=== PATIENT | female | born 1995 | race Caucasian/White ===

== ENCOUNTER → 2019-06-06 09:34 | Outpatient (BNVA) | payer SELFPAY | PROVIDERS: Family Provider Family Medicine; PCP Family Medicine; Visit Provider Nurse Practitioner Family | DX: K52.9 Noninfective gastroenteritis and colitis, unspecified (principal) | CPT/HCPCS: 80053; 82272; 82784; 83516; 84443; 85025; 87205; 87506 ==

== ENCOUNTER 2019-10-03 00:11 | Emergency (ER) | payer SELFPAY ==
[2019-10-03 00:26] VITALS: BP 131/80; PULSE 110; RESP 18; TEMP 36.6; O2SAT 97; BMI 41.0
--- NOTE | 2019-10-03 00:35 | ED_ITS ---
HPI - Female Genitourinary General: Chief complaint: Vaginal Bleeding Stated complaint: vaginal bleeding Time Seen by Provider: 10/03/19 00:29 History of Present Illness: HPI Narrative: Patient complains about heavy vaginal bleeding today almost went through a whole box pads. Her periods normally on the 10th of the month which is just 3 days child. Now she normally has cramping with her periods but this is been pretty heavy she states she is anxious because the bleeding. Has had IUD removed 2 weeks ago. elicited complaint: vaginal bleeding Onset (ago): day(s) Quality of pain: cramping Consistency: constant Vaginal discharge: none Vaginal bleeding: heavy, bright red and # pads per hour (With her whole box today) Associated symptoms: Deny abdominal pain, headache(s) or nausea Sexual activity: Yes Possible : unsure if Date of Last Menstrual Period: 10/03/19 Review of Systems Const: Denies: fever(s), chills or body aches Eyes: Denies: change in vision or blurry vision ENMT: Denies: throat pain or nasal congestion Card: Denies: chest pain or dyspnea on exertion Resp: Denies: dyspnea, productive cough or non-productive cough GI: Denies: abdominal pain, nausea or vomiting : Reports: vaginal bleeding Musc: Denies: extremity pain Skin/Breast: Denies: rash Neuro: Denies: headache(s) Psych: Denies: anxiety or depression Trace/Lymph: Denies: easy bruising PFSH ED PFSH: Medical History (Updated 09/15/19 @ 15:41 by Leia Presley APN, WHNP) History of gestational diabetes History of pre-eclampsia Surgical History (Updated 09/15/19 @ 15:41 by Leia Presley APN, KIMBERLY) History of section (~2017) due to pre-eclampsia and NRFHR Family History Grandfather Diabetes Paternal grandfather Unknown Heart disease Paternal side Hypertension Paternal side Denies family history of Colon cancer Ovarian cancer Hyperlipidemia Breast cancer Family history of thyroid problem Uterine cancer Stroke Social History Smoking and tobacco status: never smoked Alcohol intake: never Lives independently: Yes Marital status: Single History of recent travel: No Additional social history: - Tobacco use: Denies Alcohol use: Soical Drug use: Denies Female Reproductive History: Date of last menstrual period: 10/03/19 Physical Exam Narrative: EXAM NARRATIVE: Patient appears anxious Const: COMMON NORMALS: no acute distress, average body habitus and patient oriented x3 HENMT: COMMON NORMALS: normocephalic HEAD & SCALP: normal to inspection and normocephalic FACE & SINUS: normal facial exam Eye: COMMON NORMALS: conjunctivae normal GENERAL EYE: appearance normal, both eyes and all related structures CONJUNCTIVA: Yes conjunctivae normal Neck/C-Spine: COMMON NORMALS: no JVD Chest: COMMONS NORMALS: normal inspection of the chest Resp: COMMON NORMALS: normal respiratory effort and clear to auscultation bilaterally AUSCULTATION: clear to auscultation bilaterally Cardio: COMMON NORMALS: no JVD and regular rhythm RATE: tachycardic RHYTHM: regular rhythm GI: COMMON NORMALS: Normal to inspection, nondistended, normoactive bowel sounds present : COMMON NORMALS: Yes normal bimanual exam EXTERNAL FEMALE EXAM: Yes normal appearance of the urethra SPECULUM EXAM - CERVIX: Yes Cervical os closed, Yes Cervical bleeding and Yes Cervical tenderness present BIMANUAL EXAM - VAGINA & UTERUS: Yes normal bimanual exam and Yes Cervical tenderness present Extremity: COMMON NORMALS: normal to inspection and full ROM Neuro: COMMON NORMALS: patient oriented x3 Course Vital Signs: Vital signs: Vital Signs Temperature 97.8 F 10/03/19 00:26 Pulse Rate 110 H 10/03/19 00:26 Respiratory Rate 18 10/03/19 00:26 Blood Pressure 131/80 10/03/19 00:26 Pulse Oximetry 97 10/03/19 00:26 Discharge Plan Discharge Prescriptions: No Action Liletta 20.1 mcg/24 hrs (6 yrs) 52 mg intrauterine device 1 device INTRAUTERI ONCE RF: 0 Coding Level of Care Code ED Director Business Intelligence for Chg Fwd Exam Comprehensive
[2019-10-03] MEDS: medroxyprogesterone 2.5 mg Tablet 10 MG PO (01:00)
[2019-10-03] MEDS: ondansetron 4 MG Tablet 8 MG PO (01:01)
[2019-10-03 01:09] LABS: Basophils % 0.2 %; Eosinophils # 0.1 10^3/uL (0.0-0.8); Eosinophils % 0.7 %; Hematocrit 41.4 % (37.0-47.0); Hemoglobin 12.9 g/dL (11.5-15.3); Lymphocytes # 4.1 10^3/uL (0.8-4.8); Lymphocytes % 31.4 %; Mean Corpuscular HGB Conc 31.2 g/dL (30.0-36.0); Mean Corpuscular Volume 83.5 fL (81-99); Mean Platelet Volume 10.8 fL (7.4-10.4); Monocytes # 0.7 10^3/uL (0.2-0.9); Monocytes % 5.1 %; Neutrophils % 62.4 %; Nucleated Red Blood Cells % 0 %; Platelet Count 392 10^3/cmm (130-400); Red Blood Count 4.96 10^6/uL (4.1-5.3); Red Cell Distribution Width 13.5 % (12.1-15.1); White Blood Count 13.1 10^3/uL (4.0-10.0)
[2019-10-03 01:42] LABS: HCG, Serum Qual Negative (Negative)
[2019-10-03 01:50] VITALS: BP 132/87; PULSE 78; RESP 14; O2SAT 98
== END 2019-10-03 01:51 | disposition home or self-care (01) ==
PROVIDERS: Emergency Provider Nurse Practitioner Family
DX: N93.9 Abnormal uterine and vaginal bleeding, unspecified (principal)
CPT/HCPCS: 12345; 36415; 84703; 85025; 99281; 99283; E0352; Q0162

== ENCOUNTER → 2019-12-27 10:35 | Outpatient (BNVA) | payer MEDICAID, SELFPAY | PROVIDERS: Visit Provider Nurse Practitioner Women's Health | DX: Z34.90 Encounter for supervision of normal pregnancy, unspecified, unspecified trimester (principal) | CPT/HCPCS: 82950; 84315 ==

== ENCOUNTER → 2020-01-09 08:18 | Outpatient (BNVA) | payer MEDICAID, SELFPAY | PROVIDERS: Visit Provider Obstetrics & Gynecology | DX: O09.291 Supervision of pregnancy with other poor reproductive or obstetric history, first trimester (principal); O09.891 Supervision of other high risk pregnancies, first trimester; Z3A.10 10 weeks gestation of pregnancy | CPT/HCPCS: 80307; 83036; 84315; 84443; 85027; 86592; 86762; 86803; 86850; 86900; 87086; 87340; 87806 ==

== ENCOUNTER → 2020-01-23 08:50 | Outpatient (BNVA) | payer MEDICAID, SELFPAY | PROVIDERS: Visit Provider Obstetrics & Gynecology | DX: O09.291 Supervision of pregnancy with other poor reproductive or obstetric history, first trimester (principal); O09.891 Supervision of other high risk pregnancies, first trimester; Z3A.00 Weeks of gestation of pregnancy not specified | CPT/HCPCS: 84315; 87491; 87591 ==

== ENCOUNTER → 2020-02-01 10:02 | Outpatient (BNVA) | payer MEDICAID, SELFPAY | PROVIDERS: Visit Provider Obstetrics & Gynecology | DX: Z34.90 Encounter for supervision of normal pregnancy, unspecified, unspecified trimester (principal) | CPT/HCPCS: 82575; 84156; 84315 ==

== ENCOUNTER → 2020-03-19 15:16 | Outpatient (BNVA) | payer MEDICAID, SELFPAY | PROVIDERS: Visit Provider Obstetrics & Gynecology | DX: Z34.82 Encounter for supervision of other normal pregnancy, second trimester (principal) | CPT/HCPCS: 76805 ==

== ENCOUNTER → 2020-05-17 14:31 | Outpatient (BNVA) | payer MEDICAID, SELFPAY | PROVIDERS: Visit Provider Obstetrics & Gynecology | DX: O09.892 Supervision of other high risk pregnancies, second trimester (principal) | CPT/HCPCS: 84315; 85027 ==

== ENCOUNTER → 2020-06-20 08:02 | Outpatient (BNVA) | payer MEDICAID, SELFPAY | PROVIDERS: Visit Provider Obstetrics & Gynecology | DX: O24.113 Pre-existing type 2 diabetes mellitus, in pregnancy, third trimester (principal); E11.9 Type 2 diabetes mellitus without complications; O09.291 Supervision of pregnancy with other poor reproductive or obstetric history, first trimester; O09.893 Supervision of other high risk pregnancies, third trimester | CPT/HCPCS: 80053; 82570; 84156; 84315; 84550; 85025 ==

== ENCOUNTER → 2020-06-25 07:55 | Outpatient (BNVA) | payer MEDICAID, SELFPAY | PROVIDERS: Visit Provider Obstetrics & Gynecology | DX: O24.113 Pre-existing type 2 diabetes mellitus, in pregnancy, third trimester; O09.291 Supervision of pregnancy with other poor reproductive or obstetric history, first trimester; Z3A.00 Weeks of gestation of pregnancy not specified | CPT/HCPCS: 80053; 83036; 84315 ==

== ENCOUNTER → 2020-07-03 07:47 | Outpatient (BNVA) | payer MEDICAID, SELFPAY | PROVIDERS: Visit Provider Obstetrics & Gynecology | DX: O24.113 Pre-existing type 2 diabetes mellitus, in pregnancy, third trimester; Z3A.00 Weeks of gestation of pregnancy not specified | CPT/HCPCS: 84315; 87081 ==

== ENCOUNTER → 2020-07-06 10:46 | Outpatient (BNVA) | payer MEDICAID, SELFPAY | PROVIDERS: Visit Provider Obstetrics & Gynecology | DX: O24.113 Pre-existing type 2 diabetes mellitus, in pregnancy, third trimester (principal); O09.893 Supervision of other high risk pregnancies, third trimester; Z98.891 History of uterine scar from previous surgery | CPT/HCPCS: 87635 ==

== ENCOUNTER 2020-07-09 16:26 | Outpatient (CLI) | payer MEDICAID, SELFPAY ==
--- NOTE | 2020-07-09 | US_ITS ---
WS: [id number] ULTRASOUND OB LIMITED TECHNIQUE: Limited ultrasound examination of the fetus. CLINICAL INFORMATION: GEST DM COMPARISON: None. FINDINGS: Cervix is long and closed. Cervix measures 4.3 cm Single interuterine gestation. presentation is vertex Placental location is fundal posterior. Placenta grade: 0. heart rate 150 BPM. Normal JEFFREY Biophysical profile 8 out of 8. breathin movement: 2 tone: 2 Amniotic fluid: 2 IMPRESSION Normal biophysical profile 8 out of 8
== END 2020-07-09 16:27 | disposition home or self-care (01) ==
LOC: RAD 16:30
PROVIDERS: Visit Provider Obstetrics & Gynecology
DX: O24.419 Gestational diabetes mellitus in pregnancy, unspecified control (principal)
CPT/HCPCS: 76819

== ENCOUNTER 2020-07-09 16:48 | Outpatient (CLI) | payer MEDICAID, SELFPAY ==
[2020-07-09 17:02] VITALS: BP 124/75; PULSE 118
[2020-07-09 17:12] VITALS: BMI 46.0
[2020-07-09 17:22] VITALS: BP 114/72; PULSE 102
[2020-07-09 17:35] VITALS: BP 114/72; PULSE 102; RESP 18
--- NOTE | 2020-07-09 17:45 | P.PCN_ITS ---
Procedure/Consent Procedure Narrative: NONSTRESS TEST: Place of test: [facility] [place]-L&D Indication: Type II diabetic on insulin-not well controlled Date and time of test: 07/09/2020, 5:20 PM Baseline: 145 Variability: Moderate variability Accelerations: Accelerations present Decelerations: No decelerations Tocometry: Irritability-no contractions INTERPRETATION: NST reactive-correlate with remainder of BPP, continue kick counts
[2020-07-09 17:48] LABS: Basophils % 0.2 %; Eosinophils # 0.2 10^3/uL (0.0-0.8); Eosinophils % 1.6 %; Hematocrit 32.3 % (37.0-47.0); Hemoglobin 9.6 g/dL (11.5-15.3); Lymphocytes # 2.3 10^3/uL (0.8-4.8); Lymphocytes % 23.1 %; Mean Corpuscular HGB Conc 29.7 g/dL (30.0-36.0); Mean Corpuscular Hemoglobin 22.1 pg (28.0-34.0); Mean Corpuscular Volume 74.4 fL (81-99); Mean Platelet Volume 11.8 fL (7.4-10.4); Monocytes # 0.7 10^3/uL (0.2-0.9); Monocytes % 6.6 %; Neutrophils # 6.77 10^3/uL (1.8-7.7); Neutrophils % 67.9 %; Nucleated Red Blood Cells % 0 %; Platelet Count 273 10^3/cmm (130-400); Red Blood Count 4.34 10^6/uL (4.1-5.3)
[2020-07-09 18:06] LABS: Alanine Aminotransferase 82 U/L (0-33); Albumin Level 3.3 g/dL (3.5-5.2); Alkaline Phosphatase 141 IU/L (35-105); Anion Gap 13.8 (5-19); Aspartate Amino Transferase 33 U/L (0-32); Blood Urea Nitrogen 9 mg/dL (6-20); Calcium 8.6 mg/dL (8.5-10.5); Carbon Dioxide 23 mmol/L (22-29); Chloride 102 mmol/L (98-107); Globulin 3.6 g/dL (1.3-4.6); Glomerular Filtration Rate 120.8 mL/min (90-130); Glucose 89 mg/dL (65-115); Osmolality Calculated 278 mOsm/kg (285-295); Potassium 3.8 mmol/L (3.5-5.1); Sodium 135 mmol/L (136-145); Total Bilirubin 0.3 mg/dL (0.15-1.2); Total Protein 6.9 g/dL (6.6-8.7)
== END 2020-07-09 17:35 | disposition home or self-care (01) ==
LOC: OPOB 16:53 → OBGYN 16:54
PROVIDERS: Visit Provider Obstetrics & Gynecology
DX: O24.113 Pre-existing type 2 diabetes mellitus, in pregnancy, third trimester (principal); Z3A.00 Weeks of gestation of pregnancy not specified
CPT/HCPCS: 59025; 80053; 85025; 96372; 99211

== ENCOUNTER 2020-07-10 08:19 | Outpatient (CLI) | payer MEDICAID, SELFPAY ==
[2020-07-10] MEDS: betamethasone susp 6 mg/mL 5 mL 12 MG IM (08:28)
== END 2020-07-10 08:30 | disposition home or self-care (01) ==
LOC: OPOB 08:19
PROVIDERS: Absent Provider Obstetrics & Gynecology; Visit Provider Obstetrics & Gynecology
DX: O26.899 Other specified pregnancy related conditions, unspecified trimester (principal); Z3A.00 Weeks of gestation of pregnancy not specified
CPT/HCPCS: 96372; J0702

== ENCOUNTER 2020-07-11 08:15 | Outpatient (CLI) | payer MEDICAID, SELFPAY ==
[2020-07-11] MEDS: betamethasone susp 6 mg/mL 5 mL 12 MG IM (08:34)
[2020-07-11 08:54] VITALS: BMI 45.8
== END 2020-07-11 08:36 | disposition home or self-care (01) ==
LOC: OPOB 08:20 → OBGYN 08:21
PROVIDERS: Visit Provider Obstetrics & Gynecology
DX: O26.899 Other specified pregnancy related conditions, unspecified trimester (principal); Z3A.00 Weeks of gestation of pregnancy not specified
CPT/HCPCS: 96372; J0702

== ENCOUNTER 2020-07-12 05:05 | Inpatient (IN) | payer MEDICAID, SELFPAY ==
--- NOTE | 2020-07-06 08:08 | ANES.PREANE2 ---
Pre-Anesthetic Assessment Pre-Anesthetic Assessment: Height/Weight: Height 1.52 m Preop Diagnosis: IUP Proposed Procedure: Operation Date: 07/12/20 07:00 Proposed Procedures p Section Repeat and bilateral total salpingectomy 27766 O34.219 95135 Z30.2(Bilateral) - Julia Starr MD Familial anesthetic complications: Epidural only worked on one side Social: Social History: No alcohol and No tobacco Exam: Pre-Anes Outpt Exam: alert, oriented x 3, clear to auscultation bilaterally and regular rate & rhythm Airway: Cervical ROM: WNL MP: 3 Dentition: Full Metabolic: Metabolic: DM (Type II) Anesthetic Plan: ASA status: 3 Anesthesia: Regional (specify below) Risk of > 500 ml blood loss (7ml/kg in children): No PFSH Anesthesia PFSH: Medical History Diabetes mellitus Diagnosed in 2020 in the beginning of her with a hemoglobin A1c of 9 No pertinent past medical history Denies chronic hypertension, diabetes, asthma, seizures, DVT/PE PMD: Counseled about need for primary care provider and list provided on 06/25/2020 Surgical History History of section 2017---PLTCS due to NRFHR. Performed at [facility] in [place], [place]. Confirmed LTCS with 2 layer closure. Family History Grandfather Diabetes Paternal grandfather Father Hypercholesteremia Hypertension Denies family history of Colon cancer Ovarian cancer Breast cancer Uterine cancer Thyroid condition Stroke Social History Smoking and tobacco status: never smoked Alcohol intake: former Former alcohol use details: socially prior to Additional social history: - Tobacco use: Denies Alcohol use: Soical Drug use: Denies Female Reproductive History: Date of last menstrual period: 10/03/19 Data Anesthesia Cardiac Studies: No Data to Display
[2020-07-12] VITALS (20 sets, daily range): BP systolic 91–128; BP diastolic 52–76; PULSE 64–87; RESP 16–18; TEMP 36.4–36.8; O2SAT 95–98; BMI 46.0
[2020-07-12 05:50] LABS: Glucose Point of Care 102 mg/dL (70-110)
[2020-07-12 05:52] LABS: Basophils % 0.1 %; Eosinophils % 0.1 %; Hemoglobin 8.5 g/dL (11.5-15.3); Lymphocytes # 2.4 10^3/uL (0.8-4.8); Lymphocytes % 18.6 %; Mean Corpuscular HGB Conc 29.3 g/dL (30.0-36.0); Mean Corpuscular Hemoglobin 22.1 pg (28.0-34.0); Mean Corpuscular Volume 75.3 fL (81-99); Mean Platelet Volume 11.8 fL (7.4-10.4); Monocytes % 7.9 %; Neutrophils # 9.34 10^3/uL (1.8-7.7); Neutrophils % 71.8 %; Nucleated Red Blood Cells % 0 %; Platelet Count 275 10^3/cmm (130-400); Red Blood Count 3.85 10^6/uL (4.1-5.3); Red Cell Distribution Width 15.1 % (12.1-15.1)
[2020-07-12] MEDS: lactated ringers 1,000 ML 999 ML IV (05:56)
[2020-07-12] MEDS: citric acid-sodium citrate 30 mL UDC PO (06:48)
[2020-07-12] MEDS: metoclopramide 5 mg/mL SDV 2 mL 10 MG IVP (06:49)
[2020-07-12] MEDS: famotidine 20 mg/2 mL INJ IVP (06:49)
--- NOTE | 2020-07-12 06:55 | P.HPUD_ITS ---
Labor & Delivery H&P Update Date of Procedure: July 12, 2020 Date H&P Performed: 07/03/20 H&P update information: I have reviewed H&P completed within last 30 days, I have examined patient prior to procedure, No changes to prior documentation and H&P is in [facility] EMR on date indicated Admission Diagnosis: , Multiparity desiring permanent sterilization Preop diagnosis: IUP Planned procedure: Operation Date: 07/12/20 07:00 Proposed Procedures p Section Repeat and bilateral total salpingectomy 24350 O34.219 91348 Z30.2(Bilateral) - Julia Starr MD
--- NOTE | 2020-07-12 06:58 | ANES.PREANE2 ---
Pre-Anesthetic Assessment Pre-Anesthetic Assessment: Height/Weight: Height 1.52 m Weight 107.955 kg Pulse BP 87 118/69 07/12/20 05:39 07/12/20 05:39 Preop Diagnosis: IUP Proposed Procedure: Operation Date: 07/12/20 07:00 Proposed Procedures p Section Repeat and bilateral total salpingectomy 61679 O34.219 39486 Z30.2(Bilateral) - Julia Starr MD Familial anesthetic complications: no hx anesthesia complications Was Beta Jhonny taken within 24 hours: N/A Was Clonidine taken within 24 hours: N/A Last intake: Intake Last Liquid Date 07/11/20 Last Liquid Time 22:00 Last Solid Date 07/11/20 Last Solid Time 21:30 Last Intake: 22:00 Social: Social History: No alcohol and No tobacco Exam: Pre-Anes Outpt Exam: alert, oriented x 3, clear to auscultation bilaterally and regular rate & rhythm Airway: Submandibular: WNL Cervical ROM: WNL MP: 3 History/ROS: No significant history except as noted Metabolic: Metabolic: DM and Morbid obesity Anesthetic Plan: ASA status: 2 Anesthesia: Anesthesia Evaluation and Regional (specify below) Other: spinal Risk of > 500 ml blood loss (7ml/kg in children): Yes, adequate IV access and fluids planned PFSH Anesthesia PFSH: Medical History Diabetes mellitus Diagnosed in 2019 in the beginning of her with a hemoglobin A1c of 9 No pertinent past medical history Denies chronic hypertension, diabetes, asthma, seizures, DVT/PE PMD: Counseled about need for primary care provider and list provided on 06/25/2020 Surgical History History of section 2017---PLTCS due to NRFHR. Performed at [facility] in [place], [place]. Confirmed LTCS with 2 layer closure. Family History Grandfather Diabetes Paternal grandfather Father Hypercholesteremia Hypertension Denies family history of Colon cancer Ovarian cancer Breast cancer Uterine cancer Thyroid condition Stroke Social History Smoking and tobacco status: never smoked Alcohol intake: former Former alcohol use details: socially prior to Additional social history: - Female Reproductive History: : 3 Data Anesthesia CBC & Chem 7: 07/12/20 05:40 Other Labs: Laboratory Results - last 48 hr 07/12/20 07/12/20 05:36 05:40 WBC 13.0 H RBC 3.85 L Hgb 8.5 L Hct 29.0 L MCV 75.3 L MCH 22.1 L MCHC 29.3 L RDW 15.1 Plt Count 275 MPV 11.8 H Neut % (Auto) 71.8 Lymph % (Auto) 18.6 Boundary % (Auto) 7.9 Eos % (Auto) 0.1 Baso % (Auto) 0.1 Neut # (Auto) 9.34 H Lymph # (Auto) 2.4 Boundary # (Auto) 1.0 H Eos # (Auto) 0.0 Baso # (Auto) 0.0 Nucleated RBC % (auto) 0 Nucleated RBCs # 0.0 POC Glucose 102 Cardiac Studies: No Data to Display
--- NOTE | 2020-07-12 08:59 | PM.OP ---
Operative Report Date of procedure: July 12, 2020 OPERATIVE REPORT Date of surgery: 07/12/2020 Date of dictation: 07/12/2020 Preoperative diagnosis: 25-year-old 3 P0201 at 37 weeks and 0 days, Previous delivery x1-desiring repeat , multiparity desiring sterilization, anemia with a hemoglobin of 8.5, type 2 diabetes on insulin-not well controlled, morbid obesity with a BMI of 46, polyhydramnios, large for gestational age, history of preeclampsia on aspirin Postoperative diagnosis/findings: Same, baby boy Vancourt weighing 9 pounds 12 ounces, 4410 g, 20-1/2 inches long with Apgars 8 8 and 9, cephalic, clear amniotic fluid, normal tubes and ovaries bilaterally, omental adhesions onto the anterior abdominal wall which were taken down. Procedure done: Repeat low transverse delivery with bilateral total salpingectomy for sterilization Specimens removed/disposition of specimens: Placenta and cord which were discarded right and left fallopian tubes sent to pathology completely Surgeon: Dr. Julia Conley speech correction assistant: Shonda Campuzano Anesthesia: Spinal anesthesia Estimated blood loss: 900 ml Intravenous fluids: 1500 mL of LR Urine output: 500 mL of clear urine at the end of procedure Medications: As per anesthesia records Complications: None, patient was left to recover in a stable condition. PROCEDURE: After consent was obtained, patient was taken to the operating room where spinal anesthesia was placed without difficulty. She was placed supine on the table with a left lateral wedge. Weber catheter and SCDs were placed. The abdomen was shaved and then prepped with duo prep. She was draped in a sterile fashion. After checking adequacy of anesthesia, a Pfannenstiel incision was made 2 cm above the pubic symphysis. This was a little bit below her previous incision which was higher up. The incision was carried down to the fascia using the Bovie. The fascia was nicked in the midline and the fascial incision was extended laterally using curved Mayos. The inferior aspect of the fascia was grasped with renu clamps and dissected off from the underlying rectus muscle. This was repeated again superiorly without any difficulty. The rectus muscle was . A eliu was made in the peritoneum and the peritoneal incision was carried inferiorly taking care to proceed in layers so as to avoid the bladder. The peritoneal incision was extended superiorly as well. Omental adhesions were noted onto the peritoneum and these were taken down using the Bovie and taking care to ensure good hemostasis. Once this was done the omentum was stuck to behind the uterus. The uterus was noted to be rotated to the left. The bladder peritoneum was grasped with smooth forceps a bladder flap was created-minimal adhesions were noted on the bladder. the bladder blade was replaced thus protecting the bladder. A LOW TRANSVERSE UTERINE INCISION was made with a scalpel till the amniotic membrane was reached. The uterine incision was then extended laterally using bandage scissors. Amniotomy was done with Allis clamps and clear amniotic fluid was drained. The head of the baby was brought up to the level of the incision and delivered with fundal pressure. The remainder of body followed without any difficulty. The nose and mouth were suctioned, the umbilical cord was clamped and cut and the baby was handed off to the waiting field pipe lines supervisor, Dr. Santiago. The placenta was delivered spontaneously with fundal massage. It was noted to be intact and was discarded. The interior of the uterus was cleaned of all clot and debris and was noted to be josue well. The uterus was exteriorized. The uterine incision was closed with 0 Vicryl in a running interlocking manner. Good hemostasis and reapproximation was obtained. Jsgugs-vo-rebhm sutures were placed to obtain hemostasis. The abdomen was irrigated and the gutters were cleaned of clot and debris. Normal tubes and ovaries were noted bilaterally. At this time we proceeded with bilateral salpingectomy. Using the Vuoyant device the mesosalpinx under the fallopian tube was grasped clamped cauterized and cut. This was done sequentially starting from the fimbriated end towards the cornual end. Good hemostasis and sealing was noted. The cornual end was cauterized again. This was done first on the right side and then on the left side and both fallopian tubes were completely excised. There was some bleeding noted near the left cornual edge and caomvz-nv-sfgty suture was placed here and bleeding was well controlled. The uterus was placed back into the abdomen and uterine incision was noted to be hemostatic. The peritoneum was closed with a 2-0 plain in a continuous stitch. The rectus muscle was reapproximated with 2-0 plain suture in a mattress stitch. Good hemostasis was noted in the rectus muscle layer. The fascia was inspected for any defects and none were found and the fascia was closed with 0 loop PDS in continuous stitch. The subcutaneous plane was then irrigated and hemostasis was obtained using the Bovie. The subcutaneous plane was then reapproximated using 2-0 plain suture in a continuous manner. The skin was then closed with 4-0 Monocryl in a subcuticular fashion. Good reapproximation and hemostasis was noted. Steri-Strips were applied. The incision was dressed with Telfa ,ABD and paper tape. The fundus was noted to be firm at the end of the procedure and excess blood was expressed from the vagina. The patient was left to recover in a stable condition. This documentation was created by [employer] control tower radio operator software (known for inherent control tower radio operator error). Every effort was made to assure accuracy of control tower radio operator. Any obvious errors or omissions should be clarified with the author of the document. Pre-op Diagnosis: IUP History History History 3 Term 0 Miscarriages/Ectopic 0 2 Living Children 1 Other History: 3, Para 0201 NSVDx 1 (at 22 weeks-demise) CD x 1, 1 ---> 03/2015. Male(Issa) , 22 weeks. Vaginal. Polydramnios with PTL with PTD---- delivered in [place], [place]. 2 ---> 08/21/2016. Female (Bev) , 3 lb 12.7 oz, (1720 g), 34-2/7 WG. General anesthesia. Emergency PLTCS due to NRFHT. Performed at [facility] in [place], [place]. Complicated by Pre-Eclampsia, GDM-diet controlled per patient 3---> 07/12/2020--male, (Patrick) weighing 9 pounds 12 ounces, 4418 g at 37 weeks. Type II diabetic diagnosed at the beginning of the and not well controlled with insulin. Repeat low transverse delivery with total salpingectomy for sterilization by Dr. Conley at [facility]. [facility] CUT TO LENGTH OPERATOR Medical History Diabetes mellitus Diagnosed in 2019 in the beginning of her with a hemoglobin A1c of 9 No pertinent past medical history Denies chronic hypertension, diabetes, asthma, seizures, DVT/PE PMD: Counseled about need for primary care provider and list provided on 06/25/2020 Surgical History (Updated 07/12/20 @ 12:10 by Julia Starr MD) History of section X 2 1--2017---PLTCS due to NRFHR. Performed at [facility] in [place], [place]. Confirmed LTCS with 2 layer closure. 2----> repeat low transverse delivery on 07/12/[address] Conley at [facility], scheduled, tubal ligation done at the same time. Status post tubal ligation 07/12/2020--bilateral total salpingectomy performed at time of for sterilization by Dr. Conley at [facility]. -Pathology pending Family History Grandfather Diabetes Paternal grandfather Father Hypercholesteremia Hypertension Denies family history of Colon cancer Ovarian cancer Breast cancer Uterine cancer Thyroid condition Stroke Social History Smoking and tobacco status: never smoked Alcohol intake: former Former alcohol use details: socially prior to Additional social history: - Supplemental [facility] Information - Tobacco Use: Denies current or past use Drug Use: Denies current or past use Alcohol Use: Social alcohol use prior to the none since finding out she was Work/Study Status: Uqks-id-gywk mother Other Female Reproductive History Menstrual History Comment: Menarche at age 11 with a cycle length of 32 days and a bleeding duration of 8-10 days. Sexual History Sexual History Comment: Coitarche at age 17, less than 5 lifetime partners, has been with her current partner, her Nii since 2018. He works in sales. STD History Comment: Denies history of sexually transmitted diseases Contraception Contraception History Comment: Has used condoms and the Liletta IUD in the past. Liletta IUD placed on 10/23/2016; removed on 09/15/2019--she like this and did well with this. -Total salpingectomy performed on 07/12/2020 at time of repeat for sterilization.
[2020-07-12] MEDS: dextrose 5%-lactated ringers 1,000 ML 125 ML IV (11:40)
[2020-07-12 13:29] LABS: Glucose Point of Care 121 mg/dL (70-110)
[2020-07-12] MEDS: ibuprofen 800 mg tablet PO ×2 (14:33→20:19)
--- NOTE | 2020-07-12 15:25 | PC.NURSE ---
Assisted pt with sitting on side of bed to dangle feet. Pt reported having a lot of pain, and was lightheaded and nauseated. Pt was tearful with movement. Decided to assist pt back to resting in bed instead of getting up to chair. Gave pt KPAD and pain medication.
--- NOTE | 2020-07-12 15:42 | PC.NURSE ---
Addendum entered by Landon Cyr RN 07/12/20 15:59: Witness to waste of dilaudid. 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 Witnessed by second RN Landon Cyr RN.
[2020-07-12] MEDS: docusate sodium 100 mg Capsule PO (17:41)
[2020-07-12] MEDS: ferrous sulfate EC 325 mg Tablet PO (17:41)
[2020-07-12 19:31] LABS: Hematocrit 28.3 % (37.0-47.0); Hemoglobin 8.4 g/dL (11.5-15.3); Mean Corpuscular HGB Conc 29.7 g/dL (30.0-36.0); Mean Corpuscular Hemoglobin 22.1 pg (28.0-34.0); Mean Corpuscular Volume 74.5 fL (81-99); Mean Platelet Volume 11.5 fL (7.4-10.4); Platelet Count 286 10^3/cmm (130-400); Red Cell Distribution Width 15.1 % (12.1-15.1); White Blood Count 14.9 10^3/uL (4.0-10.0)
[2020-07-12 19:58] LABS: Albumin Level 2.7 g/dL (3.5-5.2); Alkaline Phosphatase 104 IU/L (35-105); Anion Gap 13.2 (5-19); Aspartate Amino Transferase 31 U/L (0-32); Blood Urea Nitrogen 7 mg/dL (6-20); Calcium 7.5 mg/dL (8.5-10.5); Carbon Dioxide 23 mmol/L (22-29); Chloride 104 mmol/L (98-107); Globulin 2.6 g/dL (1.3-4.6); Glomerular Filtration Rate 149.1 mL/min (90-130); Glucose 103 mg/dL (65-115); Osmolality Calculated 280 mOsm/kg (285-295); Potassium 4.2 mmol/L (3.5-5.1); Sodium 136 mmol/L (136-145); Total Bilirubin 0.3 mg/dL (0.15-1.2); Total Protein 5.3 g/dL (6.6-8.7)
[2020-07-12 20:09] LABS: Alanine Aminotransferase 61 U/L (0-33)
[2020-07-12] MEDS: heparin 5,000 unit/mL INJ 1 mL 5000 UNIT SUBCUT (21:28)
[2020-07-13] VITALS (7 sets, daily range): BP systolic 98–129; BP diastolic 53–63; PULSE 70–78; RESP 16–18; TEMP 36.4–36.9; O2SAT 94–100
[2020-07-13] MEDS: heparin 5,000 unit/mL INJ 1 mL 5000 UNIT SUBCUT ×3 (05:35→22:26)
--- NOTE | 2020-07-13 06:56 | PC.NURSE ---
Surgical dressing removed by this nurse per MD order. Surgical site clean, dry and intact. Patient tolerated well. MARIIA RN
[2020-07-13] MEDS: lanolin oint 7 gm 1 APPLIC TOPICAL (07:06)
--- NOTE | 2020-07-13 07:15 | PM.PN ---
Subjective Subjective: Interval history: SUBJECTIVE: Ms. Márquez is doing okay today. She denies shortness of breath, chest pain, nausea, vomiting. Denies lightheadedness except when she has been on for a long time. Denies palpitation. She states that pain is now well controlled if she takes her pain medication however she really does not like taking pain medication. She is breast-feeding without any difficulty and bonding well with her son. She denies fever, chills, heavy vaginal bleeding OBJECTIVE/PHYSICAL EXAM: Gen.: No acute distress Heart: S1-S2 heard, regular rate and rhythm Lungs: Clear to auscultation bilaterally Abdomen: Soft, fundus firm below umbilicus, tenderness around incision. Hypoactive bowel sounds Incision: Clean dry and intact with Steri-Strips. Incision is overall moist as it is under her pannus Legs: No calf tenderness, trace bilateral pitting pedal edema. ASSESSMENT AND PLAN: 25-year-old 3 para 1-2-0-1 status post repeat delivery and tubal ligation, postoperative day #1 -Type II diabetic-so far post meals are overall okay however she is only on clears--we will not be able to assess diabetic control at this time-we have not had to use the regular insulin sliding scale thus far as she has had only minor elevations in her sugar. We will need to reassess this once she is on a regular diet -Morbid obesity-SCDs on while in bed and she is getting heparin 5000 units every 8 hours-continue this for DVT prophylaxis -Incision is moist--we will try to keep this area clean-nurse notified to place pad this area and patient instructed to change it every 2 hours -Chronic anemia-discussed with patient that my concern is her hemoglobin has dropped further and I would like to repeat a CBC today. If her hemoglobin is in the sevens I would recommend transfusion of 2 units of PRBCs as this may help her feel better and eating healing and decrease some of the dizziness that she is experiencing. She is agreeable with this plan--repeat CBC sent today and if hemoglobin is in the sevens we will plan on transfusing patient with 2 units of PRBC -She will likely need to stay for 1 or 2 more nights to recover from surgery -Patient has not yet passed flatus-we will advance to full liquid and hold at this point until she passes gas at which point we will advance to regular diet -P.o. pain medication as needed -Encourage ambulation and incentive spirometer use Vitals/I&O/Wt Last Vital Signs Temp 98.4 F 07/13/20 03:30 Pulse 78 07/13/20 03:30 Resp 16 07/13/20 03:30 BP 98/53 07/13/20 03:30 Pulse Ox 94 07/13/20 03:30 07/12/20 07/13/20 07/13/20 22:59 06:59 14:59 Output Total 1040 / 3465 945 / 4410 Balance -1040 / -765 -945 / -1710 Weight last 48 hrs Weight 238 lb Weight 236 lb Physical Exam Urinary Catheter Management^: Weber: Cath Placed During This Visit: yes Reason for Continuing Indwelling Catheter: Required Immobilization for Trauma or Surgery or Anesthesia Urinary Catheter Date of Insertion: 07/12/20 Urinary Catheter Time of Insertion: 07:20 Data : 07/12/20 19:20 07/12/20 19:20 Attestations Medical Necessity Statement*: Patient will need to stay 2 more midnights to recover from surgery Coding Level of Care Code Acute Pain Management Nurse for Harpreet Johnston
[2020-07-13] MEDS: ibuprofen 800 mg tablet PO ×4 (08:44→22:26)
[2020-07-13] MEDS: prenatal vitamin Capsule 1 CAP PO (08:44)
[2020-07-13] MEDS: ferrous sulfate EC 325 mg Tablet PO (08:44)
[2020-07-13] MEDS: docusate sodium 100 mg Capsule PO (08:45)
[2020-07-13] MEDS: alum-mag-hydroxide-sime 30 mL UDC PO (10:09)
[2020-07-13 10:15] LABS: Glucose Point of Care 107 mg/dL (70-110)
--- NOTE | 2020-07-13 13:15 | PC.NURSE ---
Pt ambulated around unit x3 and then became dizzy and lightheaded and was wheeled in chair back to room. Pt went back to bed without difficulties.
[2020-07-13 13:53] LABS: Glucose Point of Care 113 mg/dL (70-110)
--- NOTE | 2020-07-13 15:00 | PC.NURSE ---
Pt ambulated in hallway around OB unit x2 without difficulty. Pt back to room and to bathroom.
[2020-07-13] MEDS: diphenhydrAMINE 25 mg Capsule 50 MG PO (15:13)
[2020-07-13 17:55] LABS: Basophils % 0.3 %; Eosinophils # 0.4 10^3/uL (0.0-0.8); Hemoglobin 8.3 g/dL (11.5-15.3); Lymphocytes # 2.9 10^3/uL (0.8-4.8); Lymphocytes % 22.2 %; Mean Corpuscular HGB Conc 29.6 g/dL (30.0-36.0); Mean Corpuscular Hemoglobin 22.2 pg (28.0-34.0); Mean Corpuscular Volume 74.9 fL (81-99); Mean Platelet Volume 11.6 fL (7.4-10.4); Monocytes % 7.5 %; Neutrophils # 8.64 10^3/uL (1.8-7.7); Neutrophils % 66.3 %; Nucleated Red Blood Cells % 0.2 %; Platelet Count 259 10^3/cmm (130-400); Red Blood Count 3.74 10^6/uL (4.1-5.3); Red Cell Distribution Width 15.3 % (12.1-15.1)
[2020-07-13 19:45] LABS: Glucose Point of Care 118 mg/dL (70-110)
[2020-07-13] MEDS: diphenhydrAMINE 50 mg/mL SDV 1mL 25 MG IVP (21:03)
--- NOTE | 2020-07-14 00:08 | PC.NURSE ---
bilateral feet have 2+ pitting edema. redness is noted and circled on feet, pulses are palpable. pt states her feet are itchy and she was given IV benadryl. however, rash and redness remains on lower extremities. Redness and generalized raised rash noted to abdomen and upper thighs/perineum. It appears to be reaction to coming in contact with something. will continue to monitor. Physician is aware.
[2020-07-14 00:19] VITALS: RESP 18; O2SAT 99
[2020-07-14 05:20] VITALS: BP 123/70; PULSE 75; RESP 18; TEMP 36.9; O2SAT 99
[2020-07-14] MEDS: heparin 5,000 unit/mL INJ 1 mL 5000 UNIT SUBCUT (06:19)
[2020-07-14 06:36] LABS: Glucose Point of Care 84 mg/dL (70-110)
[2020-07-14] MEDS: prenatal vitamin Capsule 1 CAP PO (08:40)
[2020-07-14 08:41] VITALS: RESP 17
[2020-07-14] MEDS: ferrous sulfate EC 325 mg Tablet PO (08:41)
[2020-07-14] MEDS: ibuprofen 800 mg tablet PO ×2 (08:41→14:20)
[2020-07-14] MEDS: docusate sodium 100 mg Capsule PO (08:41)
[2020-07-14 08:45] VITALS: BP 123/72; PULSE 96; RESP 17; TEMP 36.7; O2SAT 96
[2020-07-14 09:44] LABS: Glucose Point of Care 120 mg/dL (70-110)
[2020-07-14] MEDS: ketorolac 30 mg/mL INJ IM (11:19)
--- NOTE | 2020-07-14 12:21 | PM.OBGYDC ---
Discharge Providers PETS SALESPERSON Date of Admission: 07/12/20 05:05 Date of Discharge: 07/14/20 Attending Provider at Admission: Julia Starr MD Attending Provider at Discharge: Julia Starr MD Diagnoses at Discharge Discharge Diagnosis (1) Anemia affecting in third trimester: Status: Acute (2) Request for sterilization: Status: Acute (3) Large for gestational age fetus affecting management of mother: Status: Acute Qualifiers: Fetus number: single or unspecified fetus Trimester: third trimester Qualified Code(s): O36.63X0 - Maternal care for excessive growth, third trimester, not applicable or unspecified (4) Polyhydramnios: Status: Acute Qualifiers: Fetus number: single or unspecified fetus Trimester: third trimester Qualified Code(s): O40.3XX0 - Polyhydramnios, third trimester, not applicable or unspecified (5) Obesity affecting : Status: Acute (6) Diabetes in : Status: Acute Qualifiers: Diabetes in type: pre-existing, type 2 Trimester: third trimester Qualified Code(s): O24.113 - Pre-existing type 2 diabetes mellitus, in , third trimester Reason for Visit Reason for Visit: repeat section and bi total salpingectomy Hospital Course Hospital Course 25-year-old 3 para 1-2-0-1 status post repeat delivery and tubal ligation, postoperative day #2. Admitted for a reapeat delivery at 37 weeks and 0 days. care complicated by diabetes, obesity, polyhydramnios and anemia. She is a febrile and Hemodynamically stable. Postop observation on uneventful. Tolerating diet well. Passing flatus. She is breast feeding without difficulty. Information Peripartum Data: Delivery Method: Physical Exam Narrative: EXAM NARRATIVE: GA; alert and oriented x 3 HEENT: normal Breasts: engorged Nipples - skin intact Lungs; clear to auscultation Heart: regular rhythm, no murmurs. Abd: Appropriately tender. BS+. minimal tenderness, incisio, Uterine fundus below umbilicus. No Fundal Tenderness. Perineum: normal lochia. Extremities: feet edema, no cyanosis, no tenderness. Urinary Catheter Management^: Weber: Cath Placed During This Visit: yes, but has since been removed by the nurse Reason for Continuing Indwelling Catheter: Decision to DC Catheter Urinary Catheter Date of Insertion: 07/12/20 Urinary Catheter Time of Insertion: 07:20 Date Urinary Catheter Removed: 07/13/20 Time Urinary Catheter Discontinued: 07:00 Discharge Data Data Completed and Pending: Completed Studies During Hospitalization Category Date Time Status Pathology: Surgic al [PTH] Routine Pth 07/12/20 09:10 Completed Pending at discharge Category Date Time Status PRBC [Leukocyte R educed RBC] Stat Lab 07/12/20 05:20 Results Type and Screen S tat Lab 07/12/20 05:20 Results Labs from last 24 hours 07/14/20 07/14/20 07/13/20 09:41 06:34 19:40 WBC RBC Hgb Hct MCV MCH MCHC RDW Plt Count MPV Neut % (Auto) Lymph % (Auto) [place] % (Auto) Eos % (Auto) Baso % (Auto) Neut # (Auto) Lymph # (Auto) [place] # (Auto) Eos # (Auto) Baso # (Auto) Nucleated RBC % (a uto) Nucleated RBCs # POC Glucose 120 H 84 118 H 07/13/20 07/13/20 17:32 13:48 WBC 13.0 H RBC 3.74 L Hgb 8.3 L Hct 28.0 L MCV 74.9 L MCH 22.2 L MCHC 29.6 L RDW 15.3 H Plt Count 259 MPV 11.6 H Neut % (Auto) 66.3 Lymph % (Auto) 22.2 [place] % (Auto) 7.5 Eos % (Auto) 3.0 Baso % (Auto) 0.3 Neut # (Auto) 8.64 H Lymph # (Auto) 2.9 [place] # (Auto) 1.0 H Eos # (Auto) 0.4 Baso # (Auto) 0.0 Nucleated RBC % (a uto) 0.2 Nucleated RBCs # 0.0 POC Glucose 113 H Vitals: Last Vital Signs Temp 98.0 F 07/14/20 08:45 Pulse 96 07/14/20 08:45 Resp 17 07/14/20 08:45 BP 123/72 07/14/20 08:45 Pulse Ox 96 07/14/20 08:45 Discharge Plan Discharge Patient Disposition: Home Condition: Stable Prescriptions: New ibuprofen 800 mg tablet 800 mg PO TID PRN (Reason: pain) Qty: 60 RF: 0 hydrocodone-acetaminophen 5-325 mg tablet 1 tab PO Q4H PRN (Reason: pain) Qty: 30 RF: 0 Iron (ferrous sulfate) 325 mg (65 mg iron) tablet 325 mg PO BID Qty: 60 RF: 0 Colace 100 mg capsule 100 mg PO BID Qty: 60 RF: 0 acetaminophen 325 mg capsule 325 mg PO Q4H PRN (Reason: fever or pain) Qty: 60 RF: 0 Continued (DME) insulin syringe,safetyneedle 0.3 mL 30 x 5/16 syringe See Rx Instructions .ROUTE .MEDSUPPLY Qty: 200 RF: 6 (DME) Blood Glucose Test Strip See Rx Instructions .ROUTE .MEDSUPPLY Qty: 200 RF: 6 insulin aspart U-100 [Novolog U-100 Insulin aspart] 100 unit/mL solution See Rx Instructions SUBCUT TID RF: 0 prenat.vits,edgar,rys-bicn-senje Tablet 1 tab PO DAILY RF: 0 (DME) breast pump [Pump In Style Advanced] Device See Rx Instructions .ROUTE .MEDSUPPLY Qty: 1 RF: 0 Levemir U-100 Insulin 100 unit/mL solution 60 unit SUBCUT DAILY Qty: 10 RF: 0 (DME) blood-glucose meter [Blood Glucose Monitoring] Kit See Rx Instructions .ROUTE .MEDSUPPLY Qty: 1 RF: 0 insulin NPH isoph U-100 human 100 unit/mL suspension See Rx Instructions SUBCUT .COMPLEX Qty: 10 RF: 5 ferrous sulfate 325 mg (65 mg iron) tablet 325 mg PO DAILY Qty: 60 RF: 2 Discharge Orders: Discharge Order (Routine); Ordered 07/14/20 Ordered By: Oskar Wilson Referrals: Julia Starr MD [Physician] - 07/25/20 8:15 am (Your 2 week appointment has been scheduled for 07/25/2020 at 8:15 am. Your 6 week appointment has been scheduled for 09/03/2020 at 2:45 pm.) Discharge Diet: Usual diet Discharge Activity: Increase activity as tolerated Patient Instructions: Your Baby (GEN), and the Working Mom (GEN), Expression, Collection and Storage of Breastmilk (GEN), How to Hold and Breastfeed Your Baby (GEN), and Nipple Soreness (GEN), Breast Fullness Versus Breast Engorgement (GEN), How to Tell if Your Baby is Getting Enough Breast Milk (GEN), Breast Care for the Breast Feeding Mother (GEN), Pre-eclampsia and Eclampsia (DC), Pre-eclampsia and Eclampsia (GEN), OB [facility], OB Discharge Report, OB Food/Drug Interaction Guide, Opioid Safety, Abnormal Bleeding, Depression Activity Restrictions/Additional Instructions: 1. Please call [facility] clinic on next working day to make your post-operative appointment in 2 weeks. 2. Please stay home until you come back to the clinic on first post-operative check up. 3. Please follow instructions on your medications CAREFULLY. 4. If you have abdominal incision, do not cover it unless dressing is necessary because of drainage. OK to shower, but avoid bath. Leave steri-strips until they fall off. If they are still on one week after surgery, you may remove them. 5. If you had vaginal surgery or vaginal repair, Dr. Conley may instruct you to take SITZ bath. 6. Yellow, blood tinged odorous vaginal discharge is usually normal after hysterectomy or vaginal surgeries. 7. No sexual intercourse, tampons, or douches until you are completely released from the post-operative care. 8. Avoid constipation by eating right and maybe using some Metamucil or Milk of Magnesia. 9. All prescription refills are given during the working hours. Please do no wait till it runs out. Call the clinic at [phone] before your medication runs out. The clinic will get in touch with your doctor to prescribe medications if necessary. 10. Please remain within 40 mile radius from our hospital because emergencies do happen now and then during the post-operative period. 11. If you have stairs at home, take one step at a time slowly and minimize the number of trips. It helps to stay in one floor for the next few days. No lifting except what you can lift by one hand until you are released from the post-operative care. 12. Driving is discouraged until you are well healed. It may be 3-4 weeks before you feel strong enough to drive. You should be able to turn and look through the rear window without pain and you should be able to push the brake pedal very hard without pain before you drive. No fast rules, but SAFETY should be your primary concern. DO NOT drive if you are on sedating medications such as narcotics. 13. Call the clinic (during working hours) to make urgent appointment or go to the Emergency room, if any of the following occurs: i. Vaginal bleeding becomes heavy, more than a period. ii. Incision becomes red and sore, or drains pus. iii. Your temperature is over 100.4 or you have chill. iv. IV site becomes red and swollen (a little ``knot?? is usually OK) v. Persistent nausea and vomiting vi. Persistent constipation or diarrhea vii. Rash or allergic reaction to medications. Discharge Attestations PETS SALESPERSON Time Spent in Discharge Care*: greater than 30 min Coding Level of Care Code Acute Toolroom Machinist for [facility] Fwd Diagnoses Anemia affecting in third trimester O99.013 Request for sterilization Z30.2 Large for gestational age fetus affecting management of mother O36.63X0 Fetus number: single or unspecified fetus Trimester: third trimester Polyhydramnios O40.3XX0 Fetus number: single or unspecified fetus Trimester: third trimester Obesity affecting O99.210 Diabetes in O24.113 Diabetes in type: pre-existing, type 2 Trimester: third trimester
[2020-07-14 14:20] VITALS: RESP 16
[2020-07-14 18:00] VITALS: BP 121/77; PULSE 105; RESP 16; TEMP 36.6; O2SAT 98
== END 2020-07-14 18:10 | disposition home or self-care (01) | DRG 783 ==
PROVIDERS: Admitting Provider Obstetrics & Gynecology; Visit Provider Obstetrics & Gynecology
PROC: 10D00Z1 Extraction of Products of Conception, Low, Open Approach (ICD-10-PCS; CPT 59514; principal; 2020-07-12 07:00)
DX: O34.211 Maternal care for low transverse scar from previous cesarean delivery (principal); O24.12 Pre-existing type 2 diabetes mellitus, in childbirth; Z3A.37 37 weeks gestation of pregnancy; Z37.0 Single live birth; O99.02 Anemia complicating childbirth; D64.9 Anemia, unspecified; O36.63X0 Maternal care for excessive fetal growth, third trimester, not applicable or unspecified; O40.3XX0 Polyhydramnios, third trimester, not applicable or unspecified; O99.214 Obesity complicating childbirth; E66.01 Morbid (severe) obesity due to excess calories; E11.9 Type 2 diabetes mellitus without complications; Z79.4 Long term (current) use of insulin; Z30.2 Encounter for sterilization
CPT/HCPCS: 36415; 36416; 51702; 58611; 59025; 59409; 80053; 82962; 85025; 85027; 86850; 86900; 86920; 88302; 96372; 96374; 96375; 98960; J1200; J1644; J1885; J2274; J2405; J2765; J3490; J7030

== ENCOUNTER → 2020-09-05 08:20 | Outpatient (BNVA) | payer MEDICAID, SELFPAY | PROVIDERS: Visit Provider Obstetrics & Gynecology | DX: Z12.4 Encounter for screening for malignant neoplasm of cervix (principal); O99.013 Anemia complicating pregnancy, third trimester; O24.111 Pre-existing type 2 diabetes mellitus, in pregnancy, first trimester; E11.9 Type 2 diabetes mellitus without complications; O24.113 Pre-existing type 2 diabetes mellitus, in pregnancy, third trimester; Z3A.00 Weeks of gestation of pregnancy not specified; D64.9 Anemia, unspecified | CPT/HCPCS: 83036; 85007; 85027; 88175 ==

== ENCOUNTER 2022-08-09 13:07 | Emergency (ER) | payer MEDICAID, SELFPAY ==
[2022-08-09 13:08] VITALS: BP 140/75; PULSE 125; RESP 17; O2SAT 96; BMI 34.7
[2022-08-09] MEDS: ketorolac 60 mg/2 mL INJ IM (14:12)
[2022-08-09 14:42] VITALS: BP 130/71; PULSE 101; RESP 15; O2SAT 98
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
--- NOTE | 2022-08-28 14:59 | DCPLANNER ---
late entry - patient called due to no primary care physician - no answer at this time.
== END 2022-08-09 14:43 | disposition home or self-care (01) ==
PROVIDERS: Emergency Provider Family Medicine
DX: M79.10 Myalgia, unspecified site (principal); E11.9 Type 2 diabetes mellitus without complications; V89.2XXA Person injured in unspecified motor-vehicle accident, traffic, initial encounter
CPT/HCPCS: 96372; 99284; J1885

== ENCOUNTER 2022-12-11 06:55 | Emergency (ER) | payer MEDICAID, SELFPAY ==
--- NOTE | 2022-12-11 06:56 | W.ED.DENTAL ---
HPI - Dental/Oral General: Chief complaint: Dental/Oral Stated complaint: Dental pain Time Seen by Provider: 12/11/22 06:56 Source: patient Mode of arrival: ambulatory History of Present Illness: 27-year-old female complaining of dental pain . She isolates pain to the the lower left wisdom tooth. No fever sweats chills no difficulty speaking or swallowing. MD Complaint: tooth pain Teeth map: 1. Relieving factors: nothing Exacerbating factors: nothing Context: history of dental caries Associated symptoms: Reports no associated symptoms; Denies fever(s) Review of Systems Const: Denies: fever(s) or chills PFSH ED PFSH: Medical History Diabetes mellitus Diagnosed in 2019 in the beginning of her with a hemoglobin A1c of 9 No pertinent past medical history Denies chronic hypertension, diabetes, asthma, seizures, DVT/PE PMD: Counseled about need for primary care provider and list provided on 06/25/2020 Surgical History History of section X 2 1--2017---PLTCS due to NRFHR. Performed at [facility] in [place], [place]. Confirmed LTCS with 2 layer closure. 2----> repeat low transverse delivery on 07/12/[address] Conley at [facility] [place], scheduled, tubal ligation done at the same time. Status post tubal ligation 07/12/2020--bilateral total salpingectomy performed at time of for sterilization by Dr. Conley at [facility] [place]. -Pathology showed full transection with normal pathology Family History Grandfather Diabetes Paternal grandfather Father Hypercholesteremia Hypertension Denies family history of Colon cancer Ovarian cancer Breast cancer Uterine cancer Thyroid disease Stroke Social History Smoking and tobacco/nicotine status: never used tobacco/nicotine Alcohol intake: former Former alcohol use details: socially prior to Substance/Drug Use: never Additional social history: - Physical Exam Narrative: EXAM NARRATIVE: Examination indentation with no swelling of the gum no drainage. The right lower wisdom tooth appears to be fractured or at very least have significant damage to it from dental caries the left has no localized erythema or swelling mildly tender to touch externally no active drainage. Course Vital Signs: Vital signs: Vital Signs Temperature 97.9 F 12/11/22 07:01 Pulse Rate 98 12/11/22 07:01 Respiratory Rate 16 12/11/22 07:01 Blood Pressure 161/84 12/11/22 07:01 Pulse Oximetry 99 12/11/22 07:01 Oxygen Delivery Me thod Room Air 12/11/22 07:01 MDM - Dental/Oral Medical Decision Making Started on Augmentin 875 twice daily. Diclofenac given for pain avoid Foods that extremes of temperature recommend soft texture diet follow-up just as soon as she is able Medical Records I reviewed the patient's medical records. No radiology studies performed this visit Discharge Plan Discharge Patient Disposition: Home Clinical Impression: Pain, dental Condition: Stable Prescriptions: New diclofenac sodium 75 mg tablet,delayed release (DR/EC) 75 mg PO Q12H PRN (Reason: pain) Qty: 20 0RF amoxicillin-pot clavulanate 875-125 mg tablet 1 tab PO BID Qty: 14 0RF Discontinued cefuroxime axetil 500 mg tablet 500 mg PO BID Qty: 20 0RF No Action promethazine-DM 6.25-15 mg/5 mL syrup 5 ml PO Q6H PRN (Reason: cough) Qty: 120 0RF Discharge Orders: Discharge ED (Routine); Ordered 12/11/22 Ordered By: Eduar Muniz Discharge Diet: As Directed Discharge Activity: Increase activity as tolerated Patient Instructions: Opioid Safety, Pain Management Activity Restrictions/Additional Instructions: Recommend mechanical soft diet avoid foods extremes of temperature. Antibiotics and pain medications. Follow-up with dentist as soon as you are able for definitive care. Coding Level of Care Code ED Level Vial Curvature Gauger for Harpreet Johnston
[2022-12-11 07:01] VITALS: BP 161/84; PULSE 98; RESP 16; TEMP 36.6; O2SAT 99; BMI 37.8
== END 2022-12-11 07:20 | disposition home or self-care (01) ==
PROVIDERS: Emergency Provider Family Medicine
DX: K08.89 Other specified disorders of teeth and supporting structures (principal); E11.9 Type 2 diabetes mellitus without complications
CPT/HCPCS: 99283

== ENCOUNTER → 2023-06-01 08:26 | Outpatient (BNVA) | payer MEDICAID, SELFPAY | PROVIDERS: Visit Provider Nurse Practitioner Women's Health | DX: R19.00 Intra-abdominal and pelvic swelling, mass and lump, unspecified site (principal) | CPT/HCPCS: 76830 ==

== ENCOUNTER 2023-06-24 07:03 | Emergency (ER) | payer MEDICAID, SELFPAY ==
[2023-06-24] VITALS (9 sets, daily range): BP systolic 104–165; BP diastolic 79–103; PULSE 95–111; RESP 18–22; TEMP 36.8–36.9; O2SAT 93–97
--- NOTE | 2023-06-24 | XR_ITS ---
WS: [id number] XR ankle LT 2V [id number] REASON FOR EXAM: POST REDUCTION FINDINGS: On this post reduction examination the ankle mortise has been restored. There is been some reduction in the angulation at the fibular fracture site. Fracture fragments of the fibula and posterior and medial malleolus remain in good position and align ment. XR/XR ankle LT 2V [id number] IMPRESSION: Post reduction with reestablishment of the ankle mortise and the fracture fragm ents remaining in good position and alignment.
--- NOTE | 2023-06-24 07:06 | XR_ITS ---
WS: [id number] XR ankle LT min 3V* [id number] REASON FOR EXAM: fall deformity FINDINGS: Fracture dislocation of the left ankle. Long comminuted spiral fracture of the distal fibular supra syndesmotic diaphysis. There appear to be components of the spiral fracture which extend into the syndesmotic region and possibly infra syndes motic region. Moderate lateral angulation at the fracture site. Multi part vertical fracture through the medial malleolus. Anterior/lateral dislocation of the distal tibia in relation to the talus. No fracture of the talus or calcaneus is identified. XR/XR ankle LT min 3V* [id number] IMPRESSION: Acute complex fracture dislocation of the left ankle as above.
--- NOTE | 2023-06-24 07:07 | W.ED.FALL ---
HPI - Fall General: Chief Complaint: Extremity Injury, Lower Stated Complaint: fall, LT ankle pain Time Seen by Provider: 06/24/23 07:08 History of Present Illness: Patient fell off her porch this morning and dislocated and probably broke her left ankle. Patient denies loss of consciousness and denies blood thinners. Ankle is obviously deformed and very tender to palpate. EMS was unable to get a line. Patient did not hit her head and denies any other injuries. When asked about the patient's codeine allergy with cause anaphylaxis she is on for sure that she is even allergic to that medicine because she had an unknown reaction when she was a child. Review of Systems General: Reports: 10 or more systems reviewed and unremarkable except in HPI and below PFSH ED PFSH: Medical History RLQ abdominal pain Diabetes mellitus Diagnosed in 2019 in the beginning of her with a hemoglobin A1c of 9 No pertinent past medical history Denies chronic hypertension, diabetes, asthma, seizures, DVT/PE PMD: Counseled about need for primary care provider and list provided on 06/25/2020 Surgical History Status post tubal ligation 07/12/2020--bilateral total salpingectomy performed at time of for sterilization by Dr. Conley at [facility] [place] -Pathology showed full transection with normal pathology History of section X 2 1--2017---PLTCS due to NRFHR. Performed at [facility] in [place], [place]. Confirmed LTCS with 2 layer closure. 2----> repeat low transverse delivery on 07/12/[address] Conley at [facility] [place], scheduled, tubal ligation done at the same time. Family History Grandfather Diabetes Paternal grandfather Father Hypercholesteremia Hypertension Denies family history of Colon cancer Ovarian cancer Breast cancer Uterine cancer Thyroid disease Stroke Physical Exam Const: COMMON NORMALS: no acute distress, average body habitus, patient oriented x3, no limitations, healthy appearing, alert and well nourished HENMT: COMMON NORMALS: normocephalic, atraumatic, hearing grossly normal bilaterally, external ears normal, Normal external nose present, moist oral mucous membranes and oropharynx normal HEAD & SCALP: normocephalic and atraumatic NOSE: Normal external nose present EXTERNAL EAR: Yes external ears normal Neck/C-Spine: COMMON NORMALS: full ROM, no lymphadenopathy, supple, no meningeal signs, no JVD and Thyroid normal THYROID: Thyroid normal Chest: COMMONS NORMALS: normal inspection of the chest and normal palpation of entire chest wall Resp: COMMON NORMALS: normal respiratory effort, No retractions, No use of accessory muscles and clear to auscultation bilaterally AUSCULTATION: clear to auscultation bilaterally Cardio: COMMON NORMALS: no JVD, regular rate, regular rhythm, S1 normal heart sound present, S2 normal heart sound present, No gallops present (Cardio), No clicks present (Cardio), No murmurs present (Cardio) and No rub (Cardio) RATE: regular rate RHYTHM: regular rhythm HEART SOUNDS: S1 normal heart sound present and S2 normal heart sound present GI: COMMON NORMALS: Normal to inspection, nondistended, normoactive bowel sounds present, Soft to palpation, non-tender, No hepatosplenomegaly present and no masses PALPATION: Yes Soft to palpation and Yes No hepatosplenomegaly present Extremity: NARRATIVE EXTREMITY EXAM: Left ankle obvious deformity, Neuro: COMMON NORMALS: patient oriented x3 SENSORIUM/ORIENTATION: Yes alert MENINGEAL SIGNS: Yes no meningeal signs Procedures Orthopedic Fracture Reduction Fracture #1: Time Out Performed: Yes Side: left Fracture Reduction Location: tibia and fibula Analgesia: procedural sedation Technique: direct manipulation Post Reduction X-rays Demonstrate: anatomical reduction Post-reduction neuro exam: intact Post-reduction vascular exam: intact Splint Applied: Yes Patient Tolerated Procedure: well and no complications Procedural Sedation Indication: fracture/dislocation reduction Presedation Evaluation: Fracture dislocation of left ankle ASA Class: I Time of Last PO Intake: 10:00 Preparation: residential monitor applied, pulse oximeter, supplemental O2 applied, suction/airway equipment at bedside and IV secured Ketamine: IV Ketamine dose (mg): 150 Patient Tolerated Procedure: well and no complications Course Vital Signs: Vital signs: Vital Signs Temperature 98.4 F 06/24/23 08:27 Pulse Rate 111 H 06/24/23 11:02 Respiratory Rate 20 H 06/24/23 08:27 Blood Pressure 104/79 06/24/23 11:02 Pulse Oximetry 93 06/24/23 11:02 Oxygen Delivery Me thod Room Air 06/24/23 11:02 MDM - Fall Medical Decision Making X-ray was obtained which showed fracture dislocation of the left ankle, patient was given approximately 200 of fentanyl, 4 Zofran, 10 of Reglan, 1 of Dilaudid for pain medicine then fracture was consciously sedated and reduced with approximately 150 mg of ketamine which worked good with no complications. Patient was placed in an OCL type splint postreduction films show good reduction CT scan was obtained. Dr. Anderson was consulted and sent pictures to and he will call the patient with a schedule to follow her up in the office. Patient be discharged on crutches and with hydrocodone. Differential Diagnosis Unlikely syncope, dislocation of shoulder region, fracture of wrist, compression fracture, concussion with loss of consciousness or concussion without loss of consciousness Medical Records I reviewed the patient's medical records. Lab Data I reviewed the patient's lab results. Radiology Impressions Ankle X-Ray 06/24/23 07:06 IMPRESSION: Acute complex fracture dislocation of the left ankle as above. Ankle CT 06/24/23 09:16 IMPRESSION: 1. Diffuse soft tissue edema with successful postreduction tibiotalar dislocation. 2. Comminuted fractures involving the medial malleolus extending into the posterior malleolus with mild widening. 3. Long spiral fracture of the distal fibula with mild lateral angulation at the fracture apex and fracture widening measuring 3.6 mm. 4. Tiny avulsed fracture fragment at the tip of the lateral tibial plafond 5. Talar dome and calcaneus appear normal. 6. Slight irregularity with hypertrophic spurring at the tip of the lateral malleolus appears chronic. All radiology interpretation(s) finalized by discharge Discharge Plan Discharge Patient Disposition: Home Clinical Impression: Closed fracture dislocation of left ankle joint Qualifiers: Encounter type: initial encounter Qualified Code(s): S82.892A - Other fracture of left lower leg, initial encounter for closed fracture Condition: Stable Prescriptions: New hydrocodone-acetaminophen 5-325 mg tablet 1 tab PO Q6H PRN (Reason: pain) Qty: 14 0RF No Action Tylenol Ex Str Rapid Release 500 mg Tablet 1,000 mg PO Q6H PRN (Reason: Pain) Discharge Orders: Discharge ED (Routine); Ordered 06/24/23 Ordered By: Bryant Hamilton Patient Instructions: Ankle Fracture (DC), Moderate Sedation (ED), Ankle Dislocation (ED), Opioid Safety, Pain Management Activity Restrictions/Additional Instructions: Please wear your splint at all times. Please be nonweightbearing at all times and use crutches at all times. Please be careful with the crutches as the they make you a high fall risk as well as your splint does 2. Please follow-up with Dr. Russo the wood block artist's office will be calling you over the next couple days to arrange follow-up. Please take your pain medicine as needed as directed. 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
[2023-06-24] MEDS: fentaNYL 50 mcg/mL INJ 2mL 100 MCG IVP ×2 (07:13→07:35)
[2023-06-24] MEDS: ondansetron 2 mg/ML SDV 2 mL 4 MG IVP (07:16)
[2023-06-24] MEDS: sodium chloride 0.9% 1,000 ML 999 ML IV (07:21)
[2023-06-24] MEDS: metoclopramide 5 mg/mL SDV 2 mL 10 MG IVP (07:37)
[2023-06-24] MEDS: HYDROmorphone 1 mg/mL INJ 1 mL IVP (08:21)
[2023-06-24] MEDS: ketamine 100 mg/mL Inj 5 mL IVP (09:01)
[2023-06-24] MEDS: ketamine 100 mg/mL Inj 5 mL 50 MG IVP (09:03)
--- NOTE | 2023-06-24 09:16 | CT_ITS ---
WS: [id number] NONCONTRAST CT LEFT ANKLE TECHNIQUE: Noncontrast CT LEFT ankle with coronal and sagittal reformatted images. CLINICAL INFORMATION: post reduction ankle fx dislocation COMPARISON: Radiographs earlier today DLP: 156.[address] scans at [facility] use at least one of these dose optimization techniques: automated e xposure control; mA and/or kV adjustment per patient size (includes targeted exams where dose is matc hed to clinical indication); or iterative reconstruction. FINDINGS: Successful post reduction tibiotalar dislocation. Comminuted long spiral fracture of the mid to dista l fibula with mild lateral apex angulation of the fracture. Mild fracture widening. Lateral malleolus appears intact. Comminuted fractures involving the medial malleolus extending into the posterior mal leolus. Mild fracture widening at the posterior malleolar fracture measuring 3.6 mm. Tiny avulsed fra cture fragment adjacent to the lateral tibial plafond. Talus appears intact. Calcaneus appears intact . Diffuse soft tissue edema about the ankle. CT/CT ankle LT wo con* [id number] IMPRESSION: 1. Diffuse soft tissue edema with successful postreduction tibiotalar dislocat ion. 2. Comminuted fractures involving the medial malleolus extending into the post erior malleolus with mild widening. 3. Long spiral fracture of the distal fibula with mild lateral angulation at t he fracture apex and fracture widening measuring 3.6 mm. 4. Tiny avulsed fracture fragment at the tip of the lateral tibial plafond 5. Talar dome and calcaneus appear normal. 6. Slight irregularity with hypertrophic spurring at the tip of the lateral ma lleolus appears chronic.
[2023-06-24] MEDS: HYDROcodone-acetaminophen 5-325 mg Tablet 1 TAB PO (10:59)
--- NOTE | 2023-06-24 11:19 | PC.NURSE ---
0858 - JOHN WITH RESP IN ROOM 0900- TIME OUT 900- KETAMINE 100 MG GIVEN O2 93% ROOM AIR 124/74 114 0903- VERBAL ORDER FROM DR MCMAHON FOR 50 MG KETAMINE GIVEN 100% O2 ON 4 L 120 0904-FRACTURE REDUCED 904-XRAY CONFIRMATION 906- POSTERIOR SPLINT BEGAN 11- 97% ROOM AIR 137 141/94 0912-SPLINT COMPLETE CAP REFILL < 3 0914- 3 L 02 NC 0924- 2 L 02 NC 0925- 1 L O2 NC 0927- 94% ROOM AIR 94 131/93 0930 PATIENT ALERT AND ABLE TO SPEAK, ABLE TO RESPOND APPROPRIATELY A&OX4
== END 2023-06-24 11:55 | disposition home or self-care (01) ==
PROVIDERS: Emergency Provider Emergency Medicine; PCP Family Medicine Adult Medicine
DX: S82.52XA Displaced fracture of medial malleolus of left tibia, initial encounter for closed fracture (principal); E11.9 Type 2 diabetes mellitus without complications; W17.89XA Other fall from one level to another, initial encounter
CPT/HCPCS: 27810; 73600; 73610; 73700; 96361; 96374; 96375; 99285; E0114; J1170; J2405; J2765; J3010; J3490; J7030

== ENCOUNTER 2023-07-01 06:20 | Day surgery (SDC) | payer MEDICAID, SELFPAY ==
[2023-07-01] VITALS (11 sets, daily range): BP systolic 108–163; BP diastolic 58–99; PULSE 89–125; RESP 17–19; TEMP 36.1–36.5; O2SAT 90–99; BMI 29.7
--- NOTE | 2023-07-01 06:56 | P.ANESASSM_ITS ---
Pre-Anesthetic Assessment Height/Weight: Height 1.8 m Weight 96.615 kg Temp Pulse Resp BP Pulse Ox O2 Del Method 97.7 F 116 H 19 H 163/99 96 Room Air 07/01/23 06:48 07/01/23 06:48 07/01/23 06:48 07/01/23 06:48 07/01/23 06:48 07/01/23 06:53 Preop Diagnosis: Left ankle pilon fracture Operation Date: 07/01/23 08:05 Proposed Procedures p ORIF Ankle ORIF Pilon Fracture left pilon and fibular fracture(Left) - Gabriele Lentz DPM Familial anesthetic complications: None Was Beta Jhonny taken within 24 hours: N/A Was Clonidine taken within 24 hours: N/A Last intake: Intake Last Liquid Date 06/30/23 Last Liquid Time 21:00 Last Solid Date 06/30/23 Last Solid Time 21:00 Social No alcohol and No tobacco Exam alert, oriented x 3, clear to auscultation bilaterally and regular rate & rhythm Airway Mallampati: Class III Dentition: full Comments: Comments: molar infections sometimes CV/HEM Peripheral Vascular Disease Metabolic Diabetes Mellitus and Morbid Obesity Anesthetic Plan ASA status: 2 Anesthesia: General and Regional (specify below) Risk of > 500 ml blood loss (7ml/kg in children): No Medications/Allergies Home Medications Medication Instructions Recorded Confirmed Last Taken Type hydrocodone 5 mg-acetaminophen 325 1 tab PO Q6H PRN pain 6 days #24 06/25/23 06/30/23 06/30/23 Rx mg tablet tabs Allergies Allergy/AdvReac Type Severity Reaction Status Date / Time No Known Allergies Allergy Verified 07/01/23 06:58 [facility] Anesthesia Medical History RLQ abdominal pain Diabetes mellitus Diagnosed in 2019 in the beginning of her with a hemoglobin A1c of 9 No pertinent past medical history Denies chronic hypertension, diabetes, asthma, seizures, DVT/PE PMD: Counseled about need for primary care provider and list provided on 06/25/2020 Surgical History Status post tubal ligation 07/12/2020--bilateral total salpingectomy performed at time of for sterilization by Dr. Con[place] [facility] [place]Pathology showed full transection with normal pathology History of section X 2 --2017---PLTCS due to NRFHR. Performed at [facility] in [place], [place]. Confirmed LTCS with 2 layer closure. 2----> repeat low transverse delivery on 07/12/[address] Conley at [facility] [place], [place], tubal ligation done at the same time. Family History Grandfather Diabetes Paternal grandfather Father Hypercholesteremia Hypertension Denies family history of Colon cancer Ovarian cancer Breast cancer Uterine cancer Thyroid disease Stroke Data Anesthesia Cardiac Studies: No Data to Display
[2023-07-01] MEDS: acetaminophen 1,000 MG/100 ML PIGGYBACK 400 MG IV (06:58)
[2023-07-01] MEDS: gabapentin 300 mg Capsule PO (06:59)
[2023-07-01] MEDS: scopolamine 1.5 Patch 1 PATCH TRANSDERMA (06:59)
[2023-07-01] MEDS: sodium chloride 0.9% 1,000 ML 30 ML IV (06:59)
[2023-07-01] MEDS: fentaNYL 50 mcg/mL INJ 2mL IVP (07:07)
--- NOTE | 2023-07-01 07:24 | ANES.PROC ---
Anesthesia Procedures Procedure/Date: 07/01/23 Nerve Block ^: Nerve Block 1: Main Anesthesia: general anesthesia Time Out Performed: Yes Consent: requested by attending/covering physician, from patient, from other, risks and benefits reviewed and patient agrees to proceed Nerve block location: popliteal (R) Anesthesia monitors applied: pulse oximetry, EKG, BP cuff and oxygen Nerve block position: supine Anesthetic Used: ropivicaine 0.5% (30 ml) and with decadron (4 mg) Ultrasound used to: recognize landmarks Nerve Stimulator Used?: No Interscalene/Femoral BLK: 4 stimuplex 21 g needle used for position and inplane approach, visualize local anesthetic spread and no vascular puncture identified Injection: neg aspiration of heme Patient Tolerated Procedure: well and no complications Complications: none
--- NOTE | 2023-07-01 07:44 | W.PM.OPSUD ---
Surgery/Procedure H&P Update DATE OF PROCEDURE: July 01, 2023 DATE H&P PERFORMED: 06/24/23 H&P UPDATE INFORMATION: I have reviewed H&P completed within last 30 days, I have examined patient prior to procedure, No changes to prior documentation and H&P is in [facility] EMR on date indicated PREOP DIAGNOSIS: Left ankle pilon fracture PLANNED PROCEDURE: Operation Date: 07/01/23 08:05 Proposed Procedures p ORIF Ankle ORIF Pilon Fracture left pilon and fibular fracture(Left) - Gabriele Lentz DPM
[2023-07-01] MEDS: ceFAZolin 2,000 MG in sodium chloride 0.9% (plus) 50 ML 100 MG IV (08:54)
[2023-07-01] MEDS: BUPivacaine 0.5% INJ 30 mL 10 ML INJECTION (09:40)
--- NOTE | 2023-07-01 12:07 | P.BOP_ITS ---
Date of procedure: 07/01/2023 Surgeon name: Dr. Gabriele Lentz D.P.M. Compensation Director(s) name(s): Domonique Harrell Procedure(s) performed: Open reduction internal fixation left pilon fracture and left fibular fracture Description of findings: Comminuted medial malleolus fracture as well as mid diaphyseal fibular fracture Estimated blood loss: 10 cc Tourniquet time: 120 minutes Specimen(s) removed: None Post-operative diagnosis: Left ankle pilon fracture and fibular fracture
--- NOTE | 2023-07-01 12:27 | XR_ITS ---
WS: [id number] Left ankle, 3 views, 07/01/2023 Clinical Data: Post op Comparison: Left ankle, 06/24/2023 Findings: There is internal fixation of the fractures of the distal left fibula and distal left tibia. There is a plate in the distal third of the lateral aspect of the left fibula fixed with small screws. There is a medial plate fixed with screws reducing the medial malleolar fracture. There is also an orthoped ic cable reducing the syndesmosis. There is a cast surrounding the left ankle. XR/XR ankle LT min 3V* [id number] Impression: Internal fixation of fractures of distal left fibula and medial malleolus of th e left ankle.
--- NOTE | 2023-07-01 13:05 | ANE.PACU2 ---
Inpatient post-anesthesia follow up: Airway intact: Yes Vital signs: Temperature 97.0 F Pulse Rate 92 Respiratory Rate 18 Blood Pressure 124/61 Pulse Oximetry 92 Oxygen Delivery Me thod Nasal Cannula Oxygen Flow Rate 2 Fraction of Inspir ed Oxygen Hydration adequate: Yes Nausea and vomiting: No Pain level: 1 Mental status: Baseline
[2023-07-01] MEDS: ondansetron 4 MG Tablet 8 MG PO (13:30)
--- NOTE | 2023-07-01 15:57 | P.OP_ITS ---
Operative Report Date of procedure: July 01, 2023 Pre-op diagnosis: Left ankle pilon fracture and fibular fracture Post-op diagnosis: Same Post-op findings: Left ankle distal tibial pilon variant with comminuted fibular fracture Procedure done: 1. ORIF left tibial pilon fracture and fibular fracture CPT 60222 Implants: Medial malleolus antishear plate, one third tubular plate, 3.5 locking and cortical screws, tight rope all from [employer] Surgeon: Gabriele Lentz DPM Mounting Machine Operator: Domonique Harrell Estimated blood loss: 10 cc 120 minutes Complications: None Findings: See above Procedure: Patient is a 28-year-old female that has a history of left distal tibial pilon fracture and fibular fracture. The extent of the injury warrants open reduction internal fixation. A lengthy discussion regarding the procedure, including risks and complications has been had with the patient and is noted in the recent clinic note. Written and verbal consent have been obtained. All patient questions have been answered to the patient?s satisfaction. No written or verbal guarantees have been given or implied. The patient has been NPO since midnight. The history has been reviewed and the history and physical is current. The signed consent was confirmed and placed in the patient chart. Patient imaging has been reviewed and is consistent with the diagnosis. Under mild sedation, the patient was brought into the operating room and placed on the table in the supine position. IV antibiotics were given by the anesthesia team as preoperative surgical prophylaxis. General sedation was then performed by the anesthesiateam. The popliteal block was performed by the anesthesia department. A pneumatic tourniquet was then placed about the left thigh. The operative extremity was then prepped and draped in the usual fashion. The extremity was then elevated and exsanguinated before the tourniquet was inflated to 325 mmHg. After inflation, the following procedure was then perform ed. Attention was directed to the lateral aspect of the left ankle where a 10 cm incision was made overlying the fibula. This incision was made using a #15 blade. Dissection was carried down through subcutaneous and superficial fascia with care to preserve vital structures such as the sural nerve. Dissection was carried down to the level of the fibular periosteum which was incised using a #15 blade and reflected to expose the underlying fibular fracture. There was noted to be significant comminution of the fibular fracture. Dissection was carried proximally beneath the peroneal muscle belly to expose the entirety of the fracture. The fracture was reduced to appropriate anatomic position. This was confirmed on C-arm imaging with the fibula out to length. This was then clamped and temporally fixated with K wires. Next, a one third tubular plate from [employer] was positioned to the lateral aspect of the fibula to maintain length and anatomic position. The plate was fixated using a combination of locking and nonlocking 3.5 screws. Cerclage fiber tape was then applied around the fracture site and plate x 2 from [employer] to maintain alignment of the fracture fragments. This was due to the comminution. Next, attention was directed to the medial malleolus where an 8 cm incision was made overlying the medial aspect of the tibia. Dissection was carried down through subcutaneous and superficial fascia to the level of the fracture pattern. This was then debrided of hematoma formation using combination of dental pick and curette. The fracture pattern was noted to wraparound to the posterior malleolar area as 1 large piece. This was consistent with pilon variant. After removing hematoma the fracture fragment was positioned into an appropriate anatomic position. This was confirmed on C-arm imaging and temporarily fixated using K wires. Next an antishear medial malleolus plate from [employer] was positioned over the medial malleolus. Good position of the plate was noted before a combination of locking and nonlocking 3.5 millimeter screws was inserted through the plate. Good positioning of the medial malleolus plate was confirmed on C-arm imaging. The syndesmosis was stressed and was noted to be unstable. At this point it was determined necessary to stabilize the syndesmosis. A tight rope from [employer] was applied per the manufacture protocol from lateral to medial through the one third tubular plate of the fibula. Good positioning of the tight rope and suture buttons was noted. The syndesmosis was now noted to be stable. Incisions were then irrigated with copious amounts sterile saline before attention was directed to closure. Deep tissue was closed with 2-0 Vicryl followed by subcuticular closure with 4-0 Vicryl and skin closure with 3-0 nylon in horizontal mattress fashion. The tourniquet was let down and good hyperemic response was noted to all digits of the left foot. The incision sites were dressed with Xeroform, 4 x 4 gauze, Kerlix before being placed in a well-padded below the knee posterior splint consisting of stockinette, Webril and plaster. The patient tolerated the procedure and anesthesia well and without complication. The patient was transported from the operating room to the recovery room with vital signs stable and vascular status intact to all digits of the left foot. The patient was given both written and verbal instructions to remain nonweightbearing to the operative extremity, to keep dressings/splint clean, dry and intact and to take pain medication as directed. The patient will follow-up in the outpatient setting at their scheduled appointment. The patient was discharged with my personal number and was instructed to call if any questions or issues should arise. They were discharged home once anesthesia criteria was met.
== END 2023-07-01 14:30 | disposition home or self-care (01) ==
PROVIDERS: PCP Family Medicine Adult Medicine; Visit Provider Podiatrist Foot & Ankle Surgery
PROC: (CPT 27828; principal; 2023-07-01 07:55)
DX: S82.872A Displaced pilon fracture of left tibia, initial encounter for closed fracture (principal); X58.XXXA Exposure to other specified factors, initial encounter; E11.9 Type 2 diabetes mellitus without complications; E66.01 Morbid (severe) obesity due to excess calories; Z68.29 Body mass index [BMI] 29.0-29.9, adult
CPT/HCPCS: 27828; 73610; 76000; C1713; J0131; J0690; J1100; J1170; J2405; J2704; J2710; J2795; J3010; J3490; J3535; J7030; Q0162

== ENCOUNTER 2023-07-15 06:00 | Outpatient (CLI) | payer MEDICAID, SELFPAY | END 2023-07-15 06:01 | disposition home or self-care (01) | LOC: SPT 07-16 12:37 | PROVIDERS: PCP Family Medicine Adult Medicine; Visit Provider Podiatrist Foot & Ankle Surgery | DX: Z46.89 Encounter for fitting and adjustment of other specified devices (principal) | CPT/HCPCS: 97760; L4361 ==

== ENCOUNTER → 2023-07-15 12:57 | Outpatient (BNVA) | payer MEDICAID, SELFPAY | PROVIDERS: PCP Family Medicine Adult Medicine; Visit Provider Podiatrist Foot & Ankle Surgery | DX: S82.892D Other fracture of left lower leg, subsequent encounter for closed fracture with routine healing; S82.872D Displaced pilon fracture of left tibia, subsequent encounter for closed fracture with routine healing; S82.402D Unspecified fracture of shaft of left fibula, subsequent encounter for closed fracture with routine healing; E11.65 Type 2 diabetes mellitus with hyperglycemia; Z79.4 Long term (current) use of insulin; X58.XXXD Exposure to other specified factors, subsequent encounter | CPT/HCPCS: 73610 ==

== ENCOUNTER → 2023-07-29 13:03 | Outpatient (BNVA) | payer MEDICAID, SELFPAY | PROVIDERS: PCP Family Medicine Adult Medicine; Visit Provider Podiatrist Foot & Ankle Surgery | DX: S82.892D Other fracture of left lower leg, subsequent encounter for closed fracture with routine healing; S82.872D Displaced pilon fracture of left tibia, subsequent encounter for closed fracture with routine healing; S82.402D Unspecified fracture of shaft of left fibula, subsequent encounter for closed fracture with routine healing; X58.XXXD Exposure to other specified factors, subsequent encounter; E11.65 Type 2 diabetes mellitus with hyperglycemia; Z79.4 Long term (current) use of insulin | CPT/HCPCS: 73610 ==

== ENCOUNTER → 2023-08-19 13:16 | Outpatient (BNVA) | payer MEDICAID, SELFPAY | PROVIDERS: PCP Family Medicine Adult Medicine; Visit Provider Podiatrist Foot & Ankle Surgery | DX: S82.892D Other fracture of left lower leg, subsequent encounter for closed fracture with routine healing; S82.872D Displaced pilon fracture of left tibia, subsequent encounter for closed fracture with routine healing; X58.XXXD Exposure to other specified factors, subsequent encounter; E11.65 Type 2 diabetes mellitus with hyperglycemia; Z79.4 Long term (current) use of insulin | CPT/HCPCS: 73610 ==

== ENCOUNTER → 2023-09-03 13:48 | Outpatient (BNVA) | payer MEDICAID, SELFPAY | PROVIDERS: PCP Family Medicine Adult Medicine; Visit Provider Podiatrist Foot & Ankle Surgery | DX: Z98.890 Other specified postprocedural states; S82.892D Other fracture of left lower leg, subsequent encounter for closed fracture with routine healing; S82.872D Displaced pilon fracture of left tibia, subsequent encounter for closed fracture with routine healing; S82.402D Unspecified fracture of shaft of left fibula, subsequent encounter for closed fracture with routine healing; X58.XXXD Exposure to other specified factors, subsequent encounter; E11.65 Type 2 diabetes mellitus with hyperglycemia; Z79.4 Long term (current) use of insulin | CPT/HCPCS: 73610 ==

== ENCOUNTER → 2023-09-30 14:14 | Outpatient (BNVA) | payer SELFPAY | PROVIDERS: PCP Family Medicine Adult Medicine; Visit Provider Podiatrist Foot & Ankle Surgery | DX: Z98.890 Other specified postprocedural states; S82.892D Other fracture of left lower leg, subsequent encounter for closed fracture with routine healing; S82.402D Unspecified fracture of shaft of left fibula, subsequent encounter for closed fracture with routine healing; S82.872D Displaced pilon fracture of left tibia, subsequent encounter for closed fracture with routine healing; X58.XXXD Exposure to other specified factors, subsequent encounter; E11.65 Type 2 diabetes mellitus with hyperglycemia; Z79.4 Long term (current) use of insulin | CPT/HCPCS: 73610 ==

== ENCOUNTER 2023-10-20 10:43 | Emergency (ER) | payer SELFPAY ==
[2023-10-20] VITALS (29 sets, daily range): BP systolic 123–142; BP diastolic 79–101; PULSE 103–127; RESP 10–26; TEMP 36.9; O2SAT 94–98; BMI 39.6
--- NOTE | 2023-10-20 10:58 | CT_ITS ---
WS: [id number] CT ABDOMEN PELVIS TECHNIQUE: Contrast-enhanced CT of the abdomen and pelvis with coronal and sagittal reformatted image s. CLINICAL INFORMATION: abdominal pain near previous /hernia COMPARISON: None. DLP: 925.[address] scans at [facility] use at least one of these dose optimization techniques: automated e xposure control; mA and/or kV adjustment per patient size (includes targeted exams where dose is matc hed to clinical indication); or iterative reconstruction. FINDINGS: Enhancing nodule along the RIGHT rectus abdominous measuring 12.7 mm with surrounding induration. Thi s is in the area of pain and most likely represents pelvic wall endometriosis. Slight surrounding ind uration. Patient reports pain worse when on menstrual cycle which is concordant. Additional considera tions such as pelvic wall thrombophlebitis or omental infarct less likely. Diffuse fatty infiltration of the liver. Normal portal vein and splenic vein. Normal GE junction. Nor mal spleen. Normal caliber abdominal aorta. Adrenal glands are normal. Normal renal parenchymal enhan cement. No hydronephrosis. Normal sigmoid colon. Normal appendix in the RIGHT lower quadrant. Tiny fa t-containing local hernia. No other acute findings. CT/CT abdomen pelvis w con* [id number] IMPRESSION: 1. Enhancing soft tissue nodule along the RIGHT rectus sheath in the pelvis wi th slight surrounding induration suspicious for pelvic wall endometriosis. 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 This is new since 2019. 2. No other acute findings. Notified MAEGAN Fajardo at 10/20/2023 12:26 PM.
--- NOTE | 2023-10-20 11:00 | W.ED.ABDPA2 ---
HPI - Abdominal Pain General: Chief Complaint: Abdominal Pain Stated Complaint: abd pain Time Seen by Provider: 10/20/23 10:46 Source: patient Mode of arrival: ambulatory Limitations: no limitations History of Present Illness: Patient is an 28-year-old female who presents to the ED today for evaluation of pain near the right side of her previous section (2020). Patient states she has had pain for at least 4 months. She states pain seems to be worse around the time of her menstrual cycle. She has been evaluated by OB and had ultrasounds that were normal. They told her it could be a hernia. She was subsequently seen by Dr. Yip who recommended CT imaging but this never got completed as patient had another injury involving her ankle. Patient states that pain is progressively worsening. Is worse with lifting, straining, coughing, sneezing. No overlying skin changes that she has noticed. She is passing stool and gas normally. No vomiting. No fevers. MD elicited complaint: abdominal pain Pertinent past history: none Onset (ago): month(s) Pain Consistency: intermittent Location: Suprapubic and Pelvis Severity: severe Radiation: none Migration to: no migration Exacerbating factors: other (worse while on menstrual cycle, straining/lifting) Associated Symptoms: Denies chills, diarrhea, dysuria, fever(s), hematuria, nausea and vomiting Related Data Previous Rx's Medication Instructions Recorded CAM Boot #1 ea 07/15/23 ASO brace #1 ea 09/30/23 Allergies Allergy/AdvReac Type Severity Reaction Status Date / Time No Known Allergies Allergy Verified 10/20/23 11:06 Review of Systems Const: Denies: fever(s), chills, body aches, fatigue or malaise Card: Denies: chest pain Resp: Denies: dyspnea GI: Reports: abdominal pain; Denies: nausea, vomiting or diarrhea : Reports: pelvic pain (overlying scar); Denies: flank pain, difficulty voiding, dysuria, urinary frequency, urinary urgency, urinary hesitancy or hematuria Musc: Denies: neck pain, back pain, extremity pain or joint pain Skin/Breast: Denies: rash Neuro: Denies: headache(s) or dizziness [facility] ED PFSH: Medical History RLQ abdominal pain Diabetes mellitus Diagnosed in 2019 in the beginning of her with a hemoglobin A1c of 9 No pertinent past medical history Denies chronic hypertension, diabetes, asthma, seizures, DVT/PE PMD: Counseled about need for primary care provider and list provided on 06/25/2020 Surgical History Status post tubal ligation 07/12/2020--bilateral [place] at time of for [place] [facility] [place]ology showed full transection with normal pathology History of section X 2 --2017---PLTCS due to NRFHR. Performed at [facility] in [place], [place]. Confirmed LTCS with 2 layer closure. 2----> repeat low transverse delivery on 07/12/[address] Con[place] [facility] [place], tubal ligation done at the same time. Family History Grandfather Diabetes Paternal grandfather Father Hypercholesteremia Hypertension Denies family history of Colon cancer Ovarian cancer Breast cancer Uterine cancer Thyroid disease Stroke Social History Smoking and tobacco/nicotine status: never used tobacco/nicotine Physical Exam Const: COMMON NORMALS: patient oriented x3, no limitations, alert and well nourished GENERAL APPEARANCE: cooperative and in distress (appears uncomfortable secondary to pain) NUTRITIONAL APPEARANCE: overweight ORIENTATION/CONSCIOUSNESS: Yes awake, Yes oriented to person, Yes oriented to place and Yes oriented to time Eye: COMMON NORMALS: no scleral icterus Resp: COMMON NORMALS: normal respiratory effort and clear to auscultation bilaterally AUSCULTATION: clear to auscultation bilaterally Cardio: COMMON NORMALS: regular rate and regular rhythm RATE: regular rate RHYTHM: regular rhythm GI: COMMON NORMALS: Normal to inspection, nondistended, normoactive bowel sounds present, No hepatosplenomegaly present and no masses INSPECTION: Yes normal to inspection AUSCULTATION: Yes normoactive bowel sounds PALPATION: Yes Tenderness to palpation present (GI) (R side of her previous section scar; hernia/defect palpated) and Yes No hepatosplenomegaly present OTHER: small quarter sized mass/lump on R side of c section scar palpated worsened with valsalva : COMMON NORMALS: Yes no CVA tenderness BLADDER/KIDNEY EXAM: Yes no CVA tenderness Back/Pelvis: COMMON NORMALS: no CVA tenderness Neuro: COMMON NORMALS: patient oriented x3 SENSORIUM/ORIENTATION: Yes alert, Yes oriented to person, Yes oriented to place and Yes oriented to time Course Vital Signs: Vital signs: Vital Signs Temperature 98.5 F 10/20/23 10:52 Pulse Rate 112 H 10/20/23 12:00 Respiratory Rate 10 L 10/20/23 12:00 Blood Pressure 136/86 10/20/23 12:10 Pulse Oximetry 97 10/20/23 12:00 Oxygen Delivery Me thod Room Air 10/20/23 10:52 MDM - Abdominal Pain Medical Decision Making Patient here for a painful area to the right side of her previous section. Pain seems to be significantly worse around her menstrual cycle. She was concerned for a possible hernia. Blood work overall is nonactionable. Patient's glucose is elevated. She is a known diabetic not receiving treatment due to lack of insurance. UA contaminated-she has no UTI symptoms. CT scan showing a nodule right where patient is tender that appears to be a pelvic wall endometrioma. This would fit clinically given her symptoms significantly worse around her menstrual cycle. She states she will schedule follow-up with appointment with gynecology. Medical Records I reviewed the patient's medical records. Lab Data I reviewed the patient's lab results. 10/20/23 11:00 10/20/23 11:00 Labs/Radiology: Radiology Impressions Abdomen/Pelvis CT 10/20/23 10:58 IMPRESSION: 1. Enhancing soft tissue nodule along the RIGHT rectus sheath in the pelvis with slight surrounding induration suspicious for pelvic wall endometriosis. Recommend [employer] consultation. This is new since 2019. 2. No other acute findings. Notified MAEGAN Fajardo at 10/20/2023 12:26 PM. Laboratory Results WBC 10.29 10^3/uL (3.29-11.43) 10/20/23 11:00 RBC 5.47 10^6/uL (3.85-5.65) 10/20/23 11:00 Hgb 12.90 g/dL (11.27-16.99) 10/20/23 11:00 Hct 42.6 % (36-47) 10/20/23 11:00 MCV 77.9 fl (85-98) L 10/20/23 11:00 MCH 23.6 pg (27-33) L 10/20/23 11:00 MCHC 30.3 g/dL (30-55) 10/20/23 11:00 RDW 13.7 % (12.1-15.1) 10/20/23 11:00 Plt Count 399 10^3/cmm (157-399) 10/20/23 11:00 MPV 11.2 fL (7.4-10.4) H 10/20/23 11:00 Neut % (Auto) 68.9 % 10/20/23 11:00 Lymph % (Auto) 22.9 % 10/20/23 11:00 [place] % (Auto) 6.4 % 10/20/23 11:00 Eos % (Auto) 1.0 % 10/20/23 11:00 Baso % (Auto) 0.3 % 10/20/23 11:00 Neut # (Auto) 7.09 10^3/uL (1.8-7.7) 10/20/23 11:00 Lymph # (Auto) 2.4 10^3/uL (0.8-4.8) 10/20/23 11:00 [place] # (Auto) 0.7 10^3/uL (0.2-0.9) 10/20/23 11:00 Eos # (Auto) 0.1 10^3/uL (0.0-0.8) 10/20/23 11:00 Baso # (Auto) 0.0 10^3/uL (0.0-0.1) 10/20/23 11:00 Nucleated RBC % (auto) 0 % 10/20/23 11:00 Nucleated RBCs # 0.0 /100WBC 10/20/23 11:00 Sodium 134 mmol/L (136-145) L 10/20/23 11:00 Potassium 3.9 mmol/L (3.5-5.1) 10/20/23 11:00 Chloride 100 mmol/L (98-107) 10/20/23 11:00 Carbon Dioxide 23 mmol/L (22-29) 10/20/23 11:00 Anion Gap 14.9 (5-19) 10/20/23 11:00 BUN 9 mg/dL (6-20) 10/20/23 11:00 Creatinine 0.6 mg/dL (0.5-0.9) 10/20/23 11:00 GFR Calculation 118.2 mL/min (90-130) 10/20/23 11:00 Glucose 307 mg/dL (65-115) H 10/20/23 11:00 Calculated Osmolality 288 mOsm/kg (285-295) 10/20/23 11:00 Calcium 8.7 mg/dL (8.5-10.5) 10/20/23 11:00 Total Bilirubin 0.2 mg/dL (0.15-1.2) 10/20/23 11:00 AST 10 U/L (0-32) 10/20/23 11:00 ALT 15 U/L (0-33) 10/20/23 11:00 Alkaline Phosphatase 129 U/L (35-105) H 10/20/23 11:00 Total Protein 7.7 g/dL (6.6-8.7) 10/20/23 11:00 Albumin 4.2 g/dL (3.5-5.2) 10/20/23 11:00 Globulin 3.5 g/dL (1.3-4.6) 10/20/23 11:00 Lipase 27 U/L (13-60) 10/20/23 11:00 HCG, Qual Negative (Negative) 10/20/23 11:00 Urine Color Red (Yellow) A 10/20/23 12:04 Urine Appearance Clear (CLEAR) 10/20/23 12:04 Urine pH 5.0 (5-7) 10/20/23 12:04 Ur Specific [place] 1.097 (1.005-1.030) H 10/20/23 12:04 Urine Protein 1+ (Negative) A 10/20/23 12:04 Urine Glucose (UA) 3+ (Normal) H 10/20/23 12:04 Urine Ketones Trace (Negative) 10/20/23 12:04 Urine Blood 3+ (Negative) A 10/20/23 12:04 Urine Nitrate Negative (Negative) 10/20/23 12:04 Urine Bilirubin Negative (Negative) 10/20/23 12:04 Urine Urobilinogen 1.0 mg/dL (Negative) 10/20/23 12:04 Ur Leukocyte Esterase Trace (Negative) A 10/20/23 12:04 Urine RBC >100 /hpf (0-2) H 10/20/23 12:04 Urine WBC 11-20 /hpf (0-5) H 10/20/23 12:04 Ur Squamous Epith Cells 6-10 /hpf (0-5) 10/20/23 12:04 Amorphous Sediment Not Reportable 10/20/23 12:04 Urine Bacteria None seen /hpf (NONE) 10/20/23 12:04 Hyaline Casts 0-4 /lpf H 10/20/23 12:04 All radiology interpretation(s) finalized by discharge Discharge Plan Discharge Patient Disposition: Home Clinical Impression: Endometrioma Condition: Stable Prescriptions: No Action (DME) ASO brace See Rx Instructions .Route .MEDSUPPLY Qty: 1 0RF Rx Instructions: As directed (DME) CAM Boot See Rx Instructions .Route .MEDSUPPLY Qty: 1 0RF Rx Instructions: As directed Discharge Orders: Discharge ED (Routine); Ordered 10/20/23 Ordered By: Rose Diaz Referrals: Matthew Yip MD [Primary Care Provider] - Activity Restrictions/Additional Instructions: As we discussed I would like you to contact your gynecology provider for further evaluation and options regarding your findings today. Coding Level of Care Code ED Etl Manager for Harpreet Johnston
[2023-10-20 11:07] LABS: Basophils % 0.3 %; Eosinophils # 0.1 10^3/uL (0.0-0.8); Hematocrit 42.6 % (36-47); Lymphocytes # 2.4 10^3/uL (0.8-4.8); Lymphocytes % 22.9 %; Mean Corpuscular HGB Conc 30.3 g/dL (30-55); Mean Corpuscular Hemoglobin 23.6 pg (27-33); Mean Corpuscular Volume 77.9 fl (85-98); Mean Platelet Volume 11.2 fL (7.4-10.4); Monocytes # 0.7 10^3/uL (0.2-0.9); Monocytes % 6.4 %; Neutrophils # 7.09 10^3/uL (1.8-7.7); Neutrophils % 68.9 %; Nucleated Red Blood Cells % 0 %; Platelet Count 399 10^3/cmm (157-399); Red Blood Count 5.47 10^6/uL (3.85-5.65); Red Cell Distribution Width 13.7 % (12.1-15.1); White Blood Count 10.29 10^3/uL (3.29-11.43)
[2023-10-20 11:18] LABS: HCG, Serum Qual Negative (Negative)
[2023-10-20] MEDS: ondansetron 2 mg/ML SDV 2 mL 4 MG IVP (11:18)
[2023-10-20] MEDS: morphine 4 mg/mL SDV 1 mL IVP (11:22)
[2023-10-20 11:24] LABS: Alanine Aminotransferase 15 U/L (0-33); Albumin Level 4.2 g/dL (3.5-5.2); Alkaline Phosphatase 129 U/L (35-105); Anion Gap 14.9 (5-19); Aspartate Amino Transferase 10 U/L (0-32); Blood Urea Nitrogen 9 mg/dL (6-20); Calcium 8.7 mg/dL (8.5-10.5); Carbon Dioxide 23 mmol/L (22-29); Chloride 100 mmol/L (98-107); Creatinine Clr Calc Pharmacy 145.8529; Globulin 3.5 g/dL (1.3-4.6); Glomerular Filtration Rate 118.2 mL/min (90-130); Glucose 307 mg/dL (65-115); Lipase 27 U/L (13-60); Osmolality Calculated 288 mOsm/kg (285-295); Potassium 3.9 mmol/L (3.5-5.1); Sodium 134 mmol/L (136-145); Total Bilirubin 0.2 mg/dL (0.15-1.2); Total Protein 7.7 g/dL (6.6-8.7)
[2023-10-20] MEDS: iohexol 350 mg/mL 500 mL Btl (per mL) IV (11:43)
[2023-10-20 12:17] LABS: Charge for UA Resulting for Rev
[2023-10-20 12:20] LABS: Bilirubin Urine Negative (Negative); Blood Urine 3+ (Negative); Glucose Urine UA 3+ (Normal); Ketones Urine Trace (Negative); Leukocyte Esterase Urine Trace (Negative); Nitrate Urine Negative (Negative); Protein Urine 1+ (Negative); Urine Appearance Clear (CLEAR)
[2023-10-20 12:25] LABS: Bacteria Urine None Seen /hpf; Hyaline Casts Urine 0-4 /lpf; RBC Urine >100 /hpf (0-2)
[2023-10-20 12:44] LABS: Specific Gravity, Urine 1.097 (1.005-1.030); Urine Color Red (Yellow)
[2023-10-20 12:47] LABS: Add Urine Culture? Yes; UA Slide Review UA Slide Review Perf
== END 2023-10-20 13:25 | disposition home or self-care (01) ==
PROVIDERS: Emergency Provider Physician Assistant; PCP Family Medicine Adult Medicine
DX: N80.121 Deep endometriosis of right ovary (principal); E11.9 Type 2 diabetes mellitus without complications
CPT/HCPCS: 74177; 80053; 81003; 81015; 83690; 84703; 85025; 87086; 96374; 96375; 99285; J2270; J2405; Q9967